=== PATIENT | female | born 1945 | race Caucasian/White ===

== ENCOUNTER 2019-09-24 11:26 | Emergency (ER) | payer MEDICARE, SELFPAY ==
--- NOTE | ~2019-09-24 | XR_ITS ---
XR chest 2V DATE: 09/24/2019 12:13 INDICATION: Cough, sinus congestion TECHNIQUE: PA and lateral views COMPARISON: None FINDINGS: Normal heart size. No hilar or mediastinal enlargement. No pulmonary infiltrate or consolid ation, pleural effusion or pulmonary vascular congestion or pneumothorax. IMPRESSION: No active cardiopulmonary disease Reviewed, dictated and finalized at location B. DENT CARE COORDINATOR
--- NOTE | ~2019-09-24 | XR_ITS ---
XR sinus <3V DATE: 09/24/2019 12:13 INDICATION: Sinus congestion, cough TECHNIQUE: 3 views COMPARISON: None FINDINGS: The paranasal sinuses and mastoid air cells are normally developed and aerated. No radiogra phic evidence of sinusitis is detected. Degenerative changes of the cervical spine. IMPRESSION: Clear paranasal sinuses Reviewed, dictated and finalized at location B. INUOUS MINING MACHINE COAL MINER IMPRESSION: Clear paranasal sinuses
[2019-09-24 11:40] VITALS: BP 149/69; PULSE 65; RESP 20; TEMP 36.6; O2SAT 99
--- NOTE | 2019-09-24 11:48 | ED.URI ---
HPI - URI/Sore Throat General Chief Complaint: Upper Respiratory Infection Stated Complaint: chest hurts/cough Time Seen by Provider: 09/24/19 11:58 Source: patient and RN notes reviewed Mode of arrival: ambulatory Limitations: no limitations History of Present Illness HPI Narrative: A 74 y/o female, who is a smoker and nondrinker, presents to the with a worsening green productive cough for the past 9 days. She reports associated mild sore throat, hoarse voice, wheezes, MARCK rib soreness/ heaviness. She denies any ear aches, calf pain/ edema, fevers, CP, and any other medical complaints. MD elicited complaint: cough (green productive) Onset (ago): day(s) (9) Consistency: progressively worsening Description of mucous: green Associated symptoms: voice changes (hoarse), sore throat (mild) and other (wheezes, MARCK rib sorenss, and chest heaviness) Related Data Home Medications Medication Instructions Recorded Confirmed MT-HR-nmpgip/TQ-toasdw-xadskwb cap PO 09/24/19 [Vicks DayQuil-NyQuil] aspirin [Aspir-81] 81 mg PO DAILY 09/24/19 09/24/19 atorvastatin 10 mg PO DAILY 09/24/19 09/24/19 conjugated estrogens [Premarin] 0.625 mg PO EVERY OTHER DAY 09/24/19 09/24/19 metoprolol succinate 50 mg PO BID 09/24/19 09/24/19 io-tc-KL-vit G-cpmqm-xzo-coQ10 cap PO 09/24/19 [Daily Multivitamin] Allergies Allergy/AdvReac Type Severity Reaction Status Date / Time No Known Allergies Allergy Mild Verified 09/24/19 11:49 Review of Systems Review of Systems: Narrative: General/Constitutional: No weight loss,fever Eyes: N0: Redness,discharge Ears/Nose/Throat: No: Epistaxis,ear discharge, ear ache. Reports a mild sore throat and a hoarse voice. Cardio: Denies any CP or edema. Reports chest heaviness and MARCK rib soreness. Respiratory: Denies: Hemoptysis. Reports a green productive cough and wheezes. Gastrointestinal: No Vomiting, Bleeding-rectal Skin: No Lumps, eruption Neurologic: No Focal Weakness,Sz Hematologic: Denies: Petechiae/Purpura Psychiatric: No: Suicida ideationl All Other Systems: Reviewed and Negative PMFSH Past Medical History Medical History (Updated 09/24/19 @ 12:23 by Avi Goodson MD) Bronchitis Medical history unknown Surgical History Surgical History (Updated 09/24/19 @ 11:49 by Kaveh Hamilton) History of hysterectomy History of tonsillectomy Surgical history unknown Social History Social History (Updated 09/24/19 @ 12:07 by Kaveh Hamilton) Smoking status: Current every day smoker Exam Narrative: Exam Narrative: General Appearance: Well appearing, Well nourished EYE: PERRLA, Conjunctiva clear Ears: Auditory canal normal, TM normal Nose: Rhinorrhea, Mucousal erythema Mouth/Throat: MM moist, Uvula midline, Pharyngeal erythema Neck: Supple, No adenopathy Respiratory: No respiratory distress,sl BS equal, Clear to auscultation with rare wheeze] Cardiovascular: RRR, No JVD Musculoskeletal: Non tender, Normal strength Skin: Warm, Dry Neurological: A&O x3, CN II-XII intact Psychiatric: Normal mood, Normal affect Course Vital Signs Vital signs: Vital Signs Temperature 98 F 09/24/19 11:40 Pulse Rate 65 09/24/19 11:40 Respiratory Rate 20 09/24/19 11:40 Blood Pressure 149/69 H 09/24/19 11:40 Pulse Oximetry 99 09/24/19 11:40 Temperature 98 F 09/24/19 11:40 Pulse Rate 65 09/24/19 11:40 Respiratory Rate 20 09/24/19 11:40 Blood Pressure 149/69 H 09/24/19 11:40 Pulse Oximetry 99 09/24/19 11:40 MDM - URI/Sore Throat Lab Data Labs: Influenza A Screen Negative Reference Range: Negative Influenza B Screen Negative Reference Range: Negative Imaging Data Radiologist's impression: ITS Impressions Chest X-Ray 09/24/19 12:15 IMPRESSION: No active cardiopulmonary disease Sinuses X-Ray 09/24/19 12:16 IMPRESSION: Clear paranasal sinuses Discharge Plan Discharge Cl
== END 2019-09-24 12:25 | disposition home or self-care (01) ==
PROVIDERS: Emergency Provider Emergency Medicine; PCP Internal Medicine
DX: J98.01 Acute bronchospasm (principal); F17.200 Nicotine dependence, unspecified, uncomplicated
CPT/HCPCS: 70210; 71046; 87804; 99203; G0463

== ENCOUNTER 2024-01-26 15:16 | Outpatient (CLI) | payer MEDICARE, SELFPAY ==
--- NOTE | ~2024-01-26 | XR_ITS ---
EXAMINATION: XR foot LT min 3V DATE: 01/26/2024 15:37 INDICATION: Left foot pain TECHNIQUE: Dorsoplantar, oblique and lateral views of the left foot were obtained. COMPARISON: None. FINDINGS: Alignment is normal. No fracture. Mild osteoarthritis at multiple joints in the mid and forefoot. Sma ll Achilles and plantar calcaneal spurs. Soft tissues are unremarkable. IMPRESSION: 1. Mild polyarticular osteoarthritis in the mid and forefoot. Reviewed, dictated and finalized at location A.
[2024-01-26 16:40] LABS: Basophils Absolute Auto 0.1 K/mm3 (0.0-0.1); Basophils Percent Auto 0.7 % (0.2-1.2); Eosinophils Absolute Auto 0.1 K/mm3 (0-0.3); Eosinophils Percent Auto 1.4 % (0-4.4); Hematocrit 42.2 % (37.0-47.0); Hemoglobin 14.1 g/dL (12.0-15.0); Immature Granulocyte Absolute 0.03 K/mm3 (0.00-0.031); Immature Granulocyte Percent A 0.3 % (0-0.5); Lymphocytes Percent Auto 36.4 % (18.3-44.2); Mean Corpuscular HGB Conc 33.4 g/dl (32-36); Mean Corpuscular Hemoglobin 31.1 pg (26-34); Mean Platelet Volume 10.9 fl (7.4-10.4); Monocytes Absolute Auto 0.8 K/mm3 (0.1-0.6); Monocytes Percent Auto 7.8 % (2.6-8.5); Neutrophils Absolute Auto 5.1 K/mm3 (1.3-6.7); Neutrophils Percent Auto 53.4 % (45.5-73.1); Platelet Count Result 313 k/mm3 (150-375); Red Blood Count 4.54 M/mm3 (4.2-5.4); Red Cell Distribution Width 13.3 % (11.5-14.5); White Blood Count 9.6 K/mm3 (4.5-10.0)
[2024-01-26 16:55] LABS: Alanine Aminotransferase 14 U/L (6-35); Albumin Level 4.5 g/dL (3.5-5.1); Alkaline Phosphatase 76 U/L (38-126); Anion Gap 7 mmol/L (4-12); Aspartate Amino Transferase 20 U/L (14-36); Bilirubin,Total 0.7 mg/dL (0.2-1.3); Blood Urea Nitrogen 21 mg/dL (7-17); Calcium 9.3 mg/dL (8.4-10.2); Carbon Dioxide 30 mmol/L (22-30); Chloride 105 mmol/L (98-107); Cholesterol 165 mg/dL (0-200); Estimated Glomerular Filt Rate 48; Glucose 98 mg/dL (65-110); HDL Direct 38 mg/dL; Potassium 4.1 mmol/L (3.4-5.0); Sodium 142 mmol/L (137-145); Triglycerides 335 mg/dL (<150)
[2024-01-26 17:06] LABS: LDL Cholesterol Direct 88 mg/dL
== END 2024-01-26 15:17 | disposition home or self-care (01) ==
PROVIDERS: PCP Internal Medicine; Visit Provider Internal Medicine
DX: M19.072 Primary osteoarthritis, left ankle and foot (principal); I10 Essential (primary) hypertension
CPT/HCPCS: 36415; 73630; 80053; 80061; 85025

== ENCOUNTER 2025-05-29 16:14 | Outpatient (CLI) | payer MEDICARE, SELFPAY ==
--- OUTSIDE RECORDS SUMMARY | 2005-09-15 19:00 | XMS_ITS | Continuity of Care Document ---
Author Organization [facility] Address [address] [place] [address] [place] [address] Phone Care Team Providers Care Information Technology Officer Name Role Phone [facility] [employer] Unavailable Unavail able Sickgeoffrey, Jennifer Unavailable Unavailable Advance Directives Directive Yes / No Effective Date File Name No Information Encounters Encounter Description Practice Location Reason(s) For Visit Diagnoses Date Provider Providers Copied on Encounter [facility], [address], [place], [place], [id number], [place] tel:[phone] [facility] No Information [address] [employer] [address] [facility], [address], [place], [place], [id number] , [place]. tel:[phone] Consulting Provider: Jennifer Gonzalez, [address] [place] [address], [address]. tel:[phone] Family History Family Member Type Diagnosis Age At Onset No Information Payers Payer name Insurance type Covered constitution party ID Authoriza tion(s) No Information Social History Type Description Quantity Date Captured Comments Sex Female Smoking Status No Information Chief Complaint And Reason For Visit No Information Reason For Referral Reason For Referral No Information History Of Present Illness Encounter Date Complaint History Of Prese nt Illness No Information Functional Status Date Functional Assessmen t No Information Instructions Date Instruction Additional Infor mation No Information Assessments Type Assessment Date No Information Patient Care Teams Name Effective Dates (start - stop) Status Members No Information
--- NOTE | ~2025-05-29 | US_ITS ---
EXAMINATION: US renal BI, 05/29/2025 16:40 CDT HISTORY: abnormal kidney function Comparison: None Technique: Iglesias-scale and color Doppler images were obtained. Findings: KIDNEYS: The renal cortices bilaterally are thin and echogenic with multiple nonobstructing tiny punctate calculi, no hydronephrosis. Right Kidney: Right kidney midpole simple cyst 1.9 x 1.8 cm. The right kidney inferior pole simple cyst 1.4 x 1 cm. Left Kidney: Left kidney inferior pole simple cyst 10 x 6 mm. Bladder: The bladder is unremarkable. . Impression: 1. Medical renal disease. Bilateral renal calculi. No hydronephrosis. Simple appearing bilateral renal cysts Reviewed, dictated and finalized at location P. Impression: 1. Medical renal disease. Bilateral renal calculi. No hydronephrosis. Simple ap pearing bilateral renal cysts
--- OUTSIDE RECORDS SUMMARY | 2025-05-29 20:13 | XMS_ITS | Encounter Summary ---
Author Organization [facility] Address [address] [facility] Attn: Epic Prel[place] [address] Care Team Providers Care Landscape And Yardwork Laborer Name Role Phone Shahnaz Miller MD Primary Care Provider [phone] Encounter Details Date Type Department Care Team (Late st Contact Info) Description 01/02/1997 Outpatient Historical Conversion, History Shahnaz Miller MD [facility] [place], [place] [id number] Social History Tobacco Use Types Packs/Day Years Used Date Smoking Tobacco: Never Assessed Comments Unknown Sex and Gender Information Value Date Recorded Sex Assigned at Not on file Legal 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
--- OUTSIDE RECORDS SUMMARY | 2025-05-29 20:13 | XMS_ITS | Encounter Summary ---
Author Organization [employer] Address [address] [place] [address] Care Team Providers Care Cad Detailer Name Role Phone Shahnaz Miller MD Primary Care Provider [phone] Encounter Details Date Type Department Care Team (Late st Contact Info) Description 05/05/2005 Outpatient Historical [facility] Shahnaz Miller MD [address] [place] [phone] Social History Tobacco Use Types Packs/Day Years Used Date Smoking Tobacco: Never Assessed Comments Unknown Sex and Gender Information Value Date Recorded Sex Assigned at Not on file Legal Sex Female 2:48 AM RETREADER Gender Identity Not on file Sexual Orientation Not on file documented as of this encounter Plan of Treatment Not on file documented as of this encounter Visit Diagnoses Not on filedocumented in this encounter Care Teams Cad Detailer Relationship Specialty Start Date End Date Shahnaz Miller MD [address] [place] [phone] PCP - General 03/02/01 documented as of this encounter
--- OUTSIDE RECORDS SUMMARY | 2025-05-29 20:13 | XMS_ITS | Encounter Summary ---
Author Organization [facility] Address [address] [facility] Attn: Epic [place]rel[place] [address] Care Team Providers Care Thiokol Operator Name Role Phone Shahnaz Miller MD Primary Care Provider [phone] Encounter Details Date Type Department Care Team (Late st Contact Info) Description 06/18/1994 Outpatient Historical Shhanaz Miller MD [facility] [place], [place] [phone] Social History Tobacco Use Types Packs/Day Years Used Date Smoking Tobacco: Never Assessed Comments Unknown Sex and Gender Information Value Date Recorded Sex Assigned at Not on file Legal Sex Female 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
--- OUTSIDE RECORDS SUMMARY | 2025-05-29 20:13 | XMS_ITS | Encounter Summary ---
Author Organization [facility] Address 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
--- OUTSIDE RECORDS SUMMARY | 2025-05-29 20:13 | XMS_ITS | Encounter Summary ---
Author Organization [facility] Address [address] [facility] Attn: Epic [place] [address] Care Team Providers Care Support Staff Name Role Phone Shahnaz Miller MD Primary Care Provider Encounter Details Date Type Department Care Team (Late st Contact Info) Description 12/01/1991 Outpatient Historical Shahnaz Miller MD [facility] [place], [place] [phone] Social History Tobacco Use Types Packs/Day Years Used Date Smoking Tobacco: Never Assessed Comments Unknown Sex and Gender Information Value Date Recorded Sex Assigned at Not on file Legal Sex Female 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
--- OUTSIDE RECORDS SUMMARY | 2025-05-29 20:13 | XMS_ITS | Encounter Summary ---
Author Organization [employer] Address [address] [place] [address] Care Team Providers Care Vegetable Scullion Name Role Phone Shahnaz Miller MD Primary Care Provider [phone] Encounter Details Date Type Department Care Team (Late st Contact Info) Description 01/11/2005 Outpatient Historical 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
--- OUTSIDE RECORDS SUMMARY | 2025-05-29 20:13 | XMS_ITS | Encounter Summary ---
Author Organization [employer] Address 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
--- OUTSIDE RECORDS SUMMARY | 2025-05-29 20:13 | XMS_ITS | Encounter Summary ---
Author Organization [facility] Address [address] [facility] Attn: Epic Prel[place] [address] Care Team Providers Care Process Architect Name Role Phone Shahnaz Miller MD Primary Care Provider [phone] Encounter Details Date Type Department Care Team (Late st Contact Info) Description 02/26/1998 Outpatient Historical Conversion, History Shahnaz Miller MD [facility] [place], [place] [phone] Social History Tobacco Use Types Packs/Day Years Used Date Smoking Tobacco: Never Assessed Comments Unknown Sex and Gender Information Value Date Recorded Sex Assigned at Not on file Legal Sex Female 2:48 AM DIRECTOR VISUAL Gender Identity Not on file Sexual Orientation Not on file documented as of this encounter Plan of Treatment Not on file documented as of this encounter Visit Diagnoses Not on filedocumented in this encounter Care Teams Process Architect Relationship Specialty Start Date End Date Shahnaz Miller MD [address] [place] [phone] PCP - General 03/02/01 documented as of this encounter
--- OUTSIDE RECORDS SUMMARY | 2025-05-29 20:13 | XMS_ITS | Encounter Summary ---
Author Organization [facility] Address [address] 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
--- OUTSIDE RECORDS SUMMARY | 2025-05-29 20:13 | XMS_ITS | Encounter Summary ---
Author Organization [facility] Address [address] [facility] Attn: Epic [place] [address] Care Team Providers Care Automotive Parts Counter Associate Name Role Phone Shahnaz Miller MD Primary Care Provider [phone] Encounter Details Date Type Department Care Team (Late st Contact Info) Description 10/28/1993 Outpatient Historical Shahnaz Miller MD [facility] [place], [place] [phone] Social History Tobacco Use Types Packs/Day Years Used Date Smoking Tobacco: Never Assessed Comments Unknown Sex and Gender Information Value Date Recorded Sex Assigned at Not on file Legal Sex Female 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
--- OUTSIDE RECORDS SUMMARY | 2025-05-29 20:13 | XMS_ITS | Encounter Summary ---
Author Organization [employer] Address [address] [place] [address] Care Team Providers Care Boat Painter Name Role Phone Shahnaz Miller MD Primary Care Provider [phone] Encounter Details Date Type Department Care Team (Late st Contact Info) Description 12/20/2002 Outpatient Historical HIS [facility] INTERNISTS Shahnaz Miller MD [address] [place] [phone] Social History Tobacco Use Types Packs/Day Years Used Date Smoking Tobacco: Never Assessed Comments Unknown Sex and Gender Information Value Date Recorded Sex Assigned at Not on file Legal Sex Female 2:48 AM GUIDE Gender Identity Not on file Sexual Orientation Not on file documented as of this encounter Plan of Treatment Not on file documented as of this encounter Visit Diagnoses Not on filedocumented in this encounter Care Teams Boat Painter Relationship Specialty Start Date End Date Shahnaz Miller MD [address] [place] [phone] PCP - General 03/02/01 documented as of this encounter
--- OUTSIDE RECORDS SUMMARY | 2025-05-29 20:13 | XMS_ITS | Encounter Summary ---
Author Organization [employer] Address 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
--- OUTSIDE RECORDS SUMMARY | 2025-05-29 20:13 | XMS_ITS | Encounter Summary ---
Author Organization [employer] Address 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
--- OUTSIDE RECORDS SUMMARY | 2025-05-29 20:13 | XMS_ITS | Encounter Summary ---
Author Organization [facility] Address 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 Gender Identity Not on file Sexual Orientation Not on file documented as of this encounter Plan of Treatment Not on file documented as of this encounter Procedures Procedure Name Priority Date/Time Associated Diagnosis Comments LIPID PANEL Routine 04/26/2005 12:15 PM CDT COMPREHENSIVE METABOLIC PANEL Routine 04/26/2005 12:15 PM CDT documented in this encounter Results * (ABNORMAL) LIPID PANEL (04/26/2005 12:15 PM CDT) CHOLESTEROL 157 100 - 199 mg/dL INTERFACE SYSTEM TRIGLYCERIDE 213(H) 10 - 149 mg/dL INTERFACE SYSTEM HDL 41 40 - 59 mg/dL INTERFACE SYSTEM LDL CALCULATED 73 <=99 mg/dL INTERFACE SYSTEM CHOL/HDL RATIO 3.8 2.0 - 5.0 INTER FACE SYSTEM Comment:See interpretive neha a section for risk classifications. LIPID PANEL COMMENT See below INTERFACE SYSTEM Comment: Adult ATP III Classifications: Cholesterol (mg/dL) Triglyceride (mg/dL) Desirable <200 Normal <150 Borderline 200 - 239 Borderline High 150 - 199 High >=240 High 200 - 499 Very High >=500 HDL Cholesterol (mg/dL) LDL (mg/dL) Low (increased risk) <40 Optimal <100 High (reduced risk) >=60 Near or above optimal 100 - 129 Borderline 130 - 159 High 160 - 189 Very High >=190 LDL calculation is not accurate if Triglycerides are greater than 400 mg /dL Pediatric NCEP Classifications: Cholesterol(<20 years),(mg/dL) Triglyceride Desirable <170 Pediatric classification Borderline 170 - 199 not defined. High >=200 HDL (<5 years) LDL (mg/dL) No Reference Range Established Desirable <110 Borderline 110 - 129 High >=130 04/26/2005 12:1 5 PM CDT us Shahnaz Miller MD CHEMISTRY ORDERABLES Final Resul t INTERFACE SYSTEM Refer to clinic/hospital department * COMPREHENSIVE METABOLIC PANEL (04/26/2005 12:15 PM CDT) GLUCOSE 108 65 - 109 mg/dL INTERFACE SYSTEM CREATININE 0.7 0.4 - 1.2 mg/dL INTERFACE SYSTEM CALCIUM 9.4 8.6 - 10.2 mg/dL INTERFACE SYSTEM AST 17 12 - 32 U/L INTERFACE SYSTEM ALKALINE PHOSPHATASE 73 35 - 104 U/L INTERFACE SYSTEM BUN 12 6 - 20 mg/dL INTERFACE SYSTEM BILIRUBIN TOTAL 0.7 0.2 - 1.0 mg/dL INTERFACE SYSTEM ALBUMIN 4.6 3.4 - 4.8 g/dL INTERFACE SYSTEM TOTAL PROTEIN 7.5 6.3 - 8.6 g/dL INTERFACE SYSTEM ALT 14 0 - 31 U/L INTERFACE SYSTEM SODIUM 141 135 - 145 mmol/L INTERFACE SYSTEM POTASSIUM 4.0 3.5 - 4.9 mmol/L INTERFACE SYSTEM CHLORIDE 105 96 - 108 mmol/L INTERFACE SYSTEM CO2 29 22 - 30 mmol/L INTERFACE SYSTEM 04/26/2005 12:1 5 PM CDT us Shahnaz Miller MD CHEMISTRY ORDERABLES Final Resul t INTERFACE SYSTEM Refer to clinic/hospital department documented in this encounter Visit Diagnoses Diagnosis Acute bronchitis- Primary documented in this encounter Care Teams Director Of [facility] Relationship Specialty Start Date End Date Shahnaz Miller MD [address] [place] [address] PCP - General 03/02/01 documented as of this encounter
--- OUTSIDE RECORDS SUMMARY | 2025-05-29 20:13 | XMS_ITS | Encounter Summary ---
Author Organization [facility] Address 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 Gender Identity Not on file Sexual Orientation Not on file documented as of this encounter Plan of Treatment Not on file documented as of this encounter Procedures Procedure Name Priority Date/Time Associated Diagnosis Comments CBC WITH DIFFERENTIAL Routine 01/11/2005 3:08 PM CDT CBC WITH DIFFERENTIAL Routine 01/11/2005 3:08 PM CDT TSH Routine 01/11/2005 3:08 PM CDT LIPID PANEL Routine 01/11/2005 3:08 PM CDT COMPREHENSIVE METABOLIC PANEL Routine 01/11/2005 3:08 PM CDT URINALYSIS W/REFLEX MICROSCOPIC Routine 01/11/2005 3:02 PM CDT documented in this encounter Results * CBC WITH DIFFERENTIAL (01/11/2005 3:08 PM CDT) NEUTROPHILS 51 45 - 70 % INTERFAC E SYSTEM LYMPHOCYTES 42 16 - 45 % INTERFAC E SYSTEM MONOCYTES 5 3 - 13 % INTERFACE SYSTEM EOSINOPHILS 2 0 - 7 % INTERFAC E SYSTEM BASOPHILS 1 0 - 2 % INTERFACE SYSTEM NEUTROPHIL ABSOLUTE 4.50 1.90 - 7.00 K/uL INTERFACE SYSTEM LYMPHOCYTE ABSOLUTE 3.64 0.70 - 4.50 K/uL INTERFACE SYSTEM MONOCYTE ABSOLUTE 0.41 0.10 - 1.30 K/uL INTERFACE SYSTEM EOSINOPHIL ABSOLUTE 0.15 0.00 - 0.70 K/uL INTERFACE SYSTEM BASOPHILS ABSOLUTE 0.05 0.00 - 0.20 K/uL INTERFACE SYSTEM 01/11/2005 3:08 PM CDT Shahnaz Miller MD HEMATOLOGY ORDERABLES Final Resu lt Performing Organization Address City/[facility] de Phone Number INTERFACE SYSTEM Refer to clinic/hospital department * CBC WITH DIFFERENTIAL (01/11/2005 3:08 PM CDT) WBC 8.8 4.0 - 9.8 K/uL INTERFACE SYSTEM RBC 4.48 3.90 - 4.90 M/uL INTERFACE SYSTEM HEMOGLOBIN 14.0 11.8 - 14.8 g/dL INTERFACE SYSTEM HEMATOCRIT 41.5 35.5 - 44.0 % INTERFACE SYSTEM MCV 92.6 82.0 - 99.0 fL INTERFACE SYSTEM MCH 31.3 27.2 - 32.6 pg INTERFACE SYSTEM MCHC 33.7 31.5 - 35.5 % INTERFACE SYSTEM RDW 13.2 11.5 - 14.5 % INTERFACE SYSTEM RDW-STDEV 44.8 37.1 - 48.7 fL INTERFACE SYSTEM PLATELETS 296 140 - 350 K/uL INTERFACE SYSTEM MPV 11.5 9.3 - 12.4 fL INTERFACE SYSTEM 01/11/2005 3:08 PM CDT Shahnaz Miller MD HEMATOLOGY ORDERABLES Final Resu lt Performing Organization Address City/[facility] Co de Phone Number INTERFACE SYSTEM Refer to clinic/hospital department * TSH (01/11/2005 3:08 PM CDT) TSH 0.98 0.27 - 4.20 uU/mL INTERFACE SYSTEM 01/11/2005 3:08 PM CDT us Shahnaz Miller MD CHEMISTRY ORDERABLES Final Resul t Performing Organization Address City/[facility] Co de Phone Number INTERFACE SYSTEM Refer to clinic/hospital department * (ABNORMAL) LIPID PANEL (01/11/2005 3:08 PM CDT) CHOLESTEROL 198 100 - 199 mg/dL INTERFACE SYSTEM TRIGLYCERIDE 289(H) 10 - 149 mg/dL INTERFACE SYSTEM HDL 46 40 - 59 mg/dL INTERFACE SYSTEM LDL CALCULATED 94 <=99 mg/dL INTERFACE SYSTEM CHOL/HDL RATIO 4.3 2.0 - 5.0 INTER FACE SYSTEM Comment:See [...] <110 Borderline 110 - 129 High >=130 01/11/2005 3:08 PM CDT us Shahnaz Miller MD CHEMISTRY ORDERABLES Final Resul t Performing Organization Address [facility] Co de Phone Number INTERFACE SYSTEM Refer to clinic/hospital department * COMPREHENSIVE METABOLIC PANEL (01/11/2005 3:08 PM CDT) GLUCOSE 78 65 - 109 mg/dL INTERFACE SYSTEM CREATININE 0.7 0.4 - 1.2 mg/dL INTERFACE SYSTEM CALCIUM 9.3 8.6 - 10.2 mg/dL INTERFACE SYSTEM AST 14 12 - 32 U/L INTERFACE SYSTEM ALKALINE PHOSPHATASE 64 35 - 104 U/L INTERFACE SYSTEM BUN 12 6 - 20 mg/dL INTERFACE SYSTEM BILIRUBIN TOTAL 0.6 0.2 - 1.0 mg/dL INTERFACE SYSTEM ALBUMIN 4.6 3.4 - 4.8 g/dL INTERFACE SYSTEM TOTAL PROTEIN 7.6 6.3 - 8.6 g/dL INTERFACE SYSTEM ALT 17 0 - 31 U/L INTERFACE SYSTEM SODIUM 144 135 - 145 mmol/L INTERFACE SYSTEM POTASSIUM 3.6 3.5 - 4.9 mmol/L INTERFACE SYSTEM CHLORIDE 105 96 - 108 mmol/L INTERFACE SYSTEM CO2 27 22 - 30 mmol/L INTERFACE SYSTEM 01/11/2005 3:08 PM CDT us Shahnaz Miller MD CHEMISTRY ORDERABLES Final Resul t Performing Organization Address [facility] Phone Number INTERFACE SYSTEM Refer to clinic/hospital department * (ABNORMAL) URINALYSIS (01/11/2005 3:02 PM CDT) COLOR UA Yellow INTERFACE SYSTEM CLARITY UA Cloudy(A) Clear INTERFACE SYSTEM SPECIFIC GRAVITY UA 1.020 1.001 - 1.035 INTERFACE SYSTEM PH UA 5.0 5.0 - 8.0 INTERFACE SYSTEM LEUKOCYTE ESTERASE UA Trace(A) Negative INTERFACE SYSTEM NITRITE UA Negative Negative INTERFACE SYSTEM PROTEIN UA Negative Negative INTERFACE SYSTEM GLUCOSE UA Negative Negative INTERFACE SYSTEM KETONES UA Negative Negative INTERFACE SYSTEM UROBILINOGEN UA <1 <1 EU INTE RFACE SYSTEM BILIRUBIN UA Negative Negative INTERFA CE SYSTEM BLOOD UA Trace(A) Negative INTERFACE SYSTEM WBC UA 4 0 - 5 /HPF INTERFACE SYSTEM RBC UA 5(H) 0 - 4 /HPF INTERFACE SYSTEM BACTERIA UA 1+(A) None Seen /HPF INTERFACE SYSTEM EPITHELIAL CELLS, URINE 2-5 /HPF INTERFACE SYSTEM 01/11/2005 3:02 PM CDT us Shahnaz Miller MD URINE ORDERABLES Final Result Performing Organization Address [facility] Phone Number INTERFACE SYSTEM Refer to clinic/hospital department documented in this encounter Visit Diagnoses Diagnosis Major depressive disorder, single episode, unspecified- Primary documented in this encounter Care Teams Wool Hat Sanding Machine Operator Relationship Specialty Start Date End Date Shahnaz Miller MD [facility] [place] [address] PCP - General 03/02/01 documented as of this encounter
--- OUTSIDE RECORDS SUMMARY | 2025-05-29 20:13 | XMS_ITS | Encounter Summary ---
Author Organization [facility] Address 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
--- OUTSIDE RECORDS SUMMARY | 2025-05-29 20:13 | XMS_ITS | Data Portability ---
Author Organization [facility] [place], Main Office Address [address] [place] [address] Assessment Encounter Date Assessment Date Assessment LastModified by Organization Details LastModified Time 03/30/2023 03/30/2023 Blood work Continue current therapy Pain recurs call Back for re-evaluation Diagnosis in assessment and plan discussed [email or web address] Not available 03/30/2023 22:21:56 08/15/2023 08/15/2023 Continue current therapy doing well follow-up in about 6 months Not available 08/15/2023 22:47:05 Plan of Treatment Reminders Order Date Submit Date Provider Last Modified By Organization Details Last Modified Time Details Appointments None recorded. Lab lipid panel, serum 2023 024 [facility] (Lab), [address] [place], [address], 4 19:15:43 CBC w/ auto diff 2023 024 [facility] (Lab), [address] [place], [address], 4 18:14:49 CMP, serum or plasma 2023 024 [facility] (Lab), [address] [place], [address], 4 19:15:48 lipase, serum or plasma 2022 023 [email or web address] [facility] (Lab), [address] [place], [address], 3 15:11:08 urinalysis, microscopic 2022 023 [email or web address] [facility] (Lab), [address] [place] [address], [address], 4 15:36:59 CMP, serum or plasma [address] (Lab), [address] [place], [address], 3 15:11:08 lipid panel, serum [address] (Lab), [address] [place], [address], 3 15:11:08 CBC w/ auto diff [address] (Lab), [address] [place], [address], 3 15:11:08 Referral None recorded. Procedures None recorded. Surgeries None recorded. Imaging None recorded. Medication Orders lisinopril 10 mg tablet 2023 024 [email or web address] [facility], [address] [place] [address], [facility] [address], [place], [place], [id number], 4 17:00:45 atorvastati n 10 mg tablet 2023 024 [facility], [address] [facility] [address], [place], [place], [id number], 4 17:00:45 metoprolol succinate ER 50 mg tablet,exte nded release 24 hr 2023 024 [facility], [address], [address], [place], [place], [id number], 17:00:45 Patient TargetsNo targets recorded. Patient InstructionsNo instructions recorded. Reason for Referral None Reported. Results Created Date Observation Date Name Description Value Unit Range Abnormal Flag Note LastModifiedBy Organization Detail LastModifiedTime 09/02/19 22 09/02/2021 VITAM IN D 25-HY DROXY vd25oh 15.2 NG/mL 30-100 low Vitam in D Statu s: Defic ient: <20 ng/mL Insuf ficie nt: 20-29 ng/mL Suffi cient : 30-10 0 ng/mL Not Available [facility] (Lab) [address] [place], [address], 09/02/2021 17:58:16 09/02/19 22 09/02/2021 LIPID PANEL LDL cholesterol, calculated 81 mg/dL 0-130 NIH SOMEL NSUS REPOR T RECOM MENDA TIONS FOR LDL: ADULT CHILD LOW RISK <130 <110 (OPTI MAL LDL) <100 ----- BORDE RLINE : 130-1 59 ----- HIGH RISK: >160 >130 A TRIGL YCERI DE RESUL T >400 INVAL IDATE S THE CALCU LATIO N FOR LDL FRACT IONAT ION - THE LDL RESUL T WILL NOT BE REPOR JOE. Not Available [facility] (Lab) [address] [place], [address], 09/02/2021 17:32:09 09/02/19 22 09/02/2021 LIPID PANEL cholesterol 198 mg/dL 140-19 9 NIH OSMEL NSUS RECOM MENDA TION FOR JERAMY STERO L: ADULT CHILD LOW RISK: <200 <170 BORDE RLINE : <200- 239 ----- HIGH RISK: >240 >200 Not Available [facility] (Lab) [address] [place], [address], 09/02/2021 17:32:09 09/02/19 22 09/02/2021 LIPID PANEL triglyceride s 386 mg/dL 0-150 high NIH OSMEL NSUS REPOR T RECOM MENDA TION FOR TRIGL YCERI GEORGE: ADULT CHILD LOW RISK: <150 ----- BODER LINE: 150-1 99 ----- HIGH RISK: >200 ----- Not Available [facility] (Lab) [address] [place], [address], 09/02/2021 17:32:09 09/02/19 22 09/02/2021 LIPID PANEL HDL cholesterol 40 mg/dL 40- Not Available [facility] (Lab) [address] [place], [address], 09/02/2021 17:32:09 09/02/19 22 09/02/2021 COMPR EHENS BRODY METAB OLIC PANEL alkaline phosphatase 73 U/L 38-126 Not Available [facility] (Lab) [address] [place], [address], 09/02/2021 17:32:00 09/02/19 22 09/02/2021 COMPR EHENS BRODY METAB OLIC PANEL sodium 141 mmol/ L 137-14 5 Not Available [facility] (Lab) [address] [place], [address], 09/02/2021 17:32:00 09/02/19 22 09/02/2021 COMPR EHENS BRODY METAB OLIC PANEL potassium 4.8 mmol/ L 3.5-5. 1 Not Available [facility] (Lab) [address] [place], [address], 09/02/2021 17:32:00 09/02/19 22 09/02/2021 COMPR EHENS BRODY METAB OLIC PANEL chloride 104 mmol/ L 98-107 Not Available [facility] (Lab) [address] [place], [address], 09/02/2021 17:32:00 09/02/19 22 09/02/2021 COMPR EHENS BRODY METAB OLIC PANEL carbon dioxide 28 mmol/ L 22-30 Not Available [facility] (Lab) [address] [place], [address], 09/02/2021 17:32:00 09/02/19 22 09/02/2021 COMPR EHENS BRODY METAB OLIC PANEL agap 13.8 mmol/ L 14-22 low Not Available [facility] (Lab) [address] [place], [address], 09/02/2021 17:32:00 09/02/19 22 09/02/2021 COMPR EHENS BRODY METAB OLIC PANEL glucose 107 mg/dL 70-99 high Not Available [facility] (Lab) [address] [place], [address], 09/02/2021 17:32:00 09/02/19 22 09/02/2021 COMPR EHENS BRODY METAB OLIC PANEL BUN 24 mg/dL 8-19 high Not Available [facility] (Lab) [address] [place], [address], 09/02/2021 17:32:00 09/02/19 22 09/02/2021 COMPR EHENS BRODY METAB OLIC PANEL creatinine 0.86 mg/dL 0.66-1 .25 Not Available [facility] (Lab) [address] [place], [address], 09/02/2021 17:32:00 09/02/19 22 09/02/2021 COMPR EHENS BRODY METAB OLIC PANEL GFR >60 Refer ence Range : [place] ge GFR Healt hy Adult : >60 mL/mi n/1.7 3 m2 Chron ic Kidne y Disea se: 15-60 mL/mi n/1.7 3 m2 Kidne y Failu re: <15/m L/min /1.73 m2 www.n iddk. nih.g ov The MDRD study equat ion has not been valid ated in child adrian <18 years of age; pregn ant women ; the elder ly >85 years of age; or in some racia l or ethni c subgr oups, such as Hispa nics. Outsi de the valid ated marleny eters , estim ated GFR is less accur ate, requi ring clini nicci judgm ent on a case- by-ca se basis . Clini nicci inter preta tion for other races and ages must be made by the clini jose. The MDRD study equat ion has not been valid ated for the evalu ation of serum creat inine relat ed to nutri robbin l statu s or medic ation usage . For perso ns <18 years of age, a pedia tric GFR calcu lator is avail able on the [facility] websi te: https ://ww w.kid cassy.o rg/pr ofess ional s/kdo qi/gf r_cal culat or Not Available [facility] (Lab) [address] [place], [address], 09/02/2021 17:32:00 09/02/19 22 09/02/2021 COMPR EHENS BRODY METAB OLIC PANEL alanine aminotransfe rase 19 U/L 0-35 Not Available [facility] (Lab) [address] [place], [address], 09/02/2021 17:32:00 09/02/19 22 09/02/2021 COMPR EHENS BRODY METAB OLIC PANEL aspartate aminotransfe rase 25 U/L 15-37 Not Available [facility] (Lab) [address] [place], [address], 09/02/2021 17:32:00 09/02/19 22 09/02/2021 COMPR EHENS BRODY METAB OLIC PANEL bilirubin, total 0.80 mg/dL 0.20-1 .30 Not Available [facility] (Lab) [address] [place], [address], 09/02/2021 17:32:00 09/02/19 22 09/02/2021 COMPR EHENS BRODY METAB OLIC PANEL calcium 9.7 mg/dL 8.4-10 .2 Not Available [facility] (Lab) [address] [place], [address], 09/02/2021 17:32:00 09/02/19 22 09/02/2021 COMPR EHENS BRODY METAB OLIC PANEL total protein 7.1 g/dL 6.3-8. 2 Not Available [facility] (Lab) [address] [place], [address], 09/02/2021 17:32:00 09/02/19 22 09/02/2021 COMPR EHENS BRODY METAB OLIC PANEL albumin 4.8 g/dL 3.0-4. 4 high Not Available [facility] (Lab) [address] [place], [address], 09/02/2021 17:32:00 09/02/19 22 09/02/2021 COMPR EHENS BRODY METAB OLIC PANEL globulin 2.3 g/dL 2.6-4. 2 low Not Available [facility] (Lab) [address] [place], [address], 09/02/2021 17:32:00 09/02/19 22 09/02/2021 COMPR EHENS BRODY METAB OLIC PANEL A/G ratio 2.1 ratio 1.0-2. 0 high Not Available [facility] (Lab) [address] [place], [address], 09/02/2021 17:32:00 11/25/19 22 11/24/2021 VITAM IN D 25-HY DROXY vd25oh 38.0 NG/mL 30-100 Vitam in D Statu s: Defic ient: <20 ng/mL Insuf ficie nt: 20-29 ng/mL Suffi cient : 30-10 0 ng/mL Not Available [facility] (Lab) [address] [place], [address], 11/24/2021 13:02:49 04/05/20 22 04/05/2022 VITAM IN D 25-HY DROXY vd25oh 33.5 NG/mL 30-100 Vitam in D Statu s: Defic ient: <20 ng/mL Insuf ficie nt: 20-29 ng/mL Suffi cient : 30-10 0 ng/mL Not Available [facility] (Lab) [address] [place], [address], 04/05/2022 15:00:50 04/05/20 22 04/05/2022 MAGNE SIUM magnesium 2.0 mg/dL 1.6-2. 3 Not Available [facility] (Lab) [address] [place], [address], 04/05/2022 14:52:01 04/05/20 22 04/05/2022 LIPID PANEL cholesterol 177 mg/dL 140-19 9 NIH OSMEL NSUS RECOM MENDA TION FOR JERAMY STERO L: ADULT CHILD LOW RISK: <200 <170 BORDE RLINE : <200- 239 ----- HIGH RISK: >240 >200 Not Available [facility] (Lab) [address] [place], [address], 04/05/2022 14:51:59 04/05/20 22 04/05/2022 LIPID PANEL triglyceride s 405 mg/dL 0-150 high NIH OSMEL NSUS REPOR T RECOM MENDA TION FOR TRIGL YCERI GEORGE: ADULT CHILD LOW RISK: <150 ----- BODER LINE: 150-1 99 ----- HIGH RISK: >200 ----- Not Available [facility] (Lab) [address] [place], [address], 04/05/2022 14:51:59 04/05/20 22 04/05/2022 LIPID PANEL HDL cholesterol 33 mg/dL 40- low Not Available [facility] (Lab) [address] [place], [address], 04/05/2022 14:51:59 04/05/20 22 04/05/2022 COMPR EHENS BRODY METAB OLIC PANEL creatinine 0.99 mg/dL 0.66-1 .25 Not Available [facility] (Lab) [address] [place], [address], 04/05/2022 14:51:24 04/05/20 22 04/05/2022 COMPR EHENS BRODY METAB OLIC PANEL anion gap 13.7 mmol/ L 14-22 low Not Available [facility] (Lab) [address] [place], [address], 04/05/2022 14:51:24 04/05/20 22 04/05/2022 COMPR EHENS BRODY METAB OLIC PANEL glucose 93 mg/dL 70-99 Not Available [facility] (Lab) [address] [place], [address], 04/05/2022 14:51:24 04/05/20 22 04/05/2022 COMPR EHENS BRODY METAB OLIC PANEL BUN 21 mg/dL 8-19 high Not Available [facility] (Lab) [address] [place], [address], 04/05/2022 14:51:24 04/05/20 22 04/05/2022 COMPR EHENS BRODY METAB OLIC PANEL GFR 55 Refer ence Range : [place] ge GFR Healt hy Adult : >60 mL/mi n/1.7 3 m2 Chron ic Kidne y Disea se: 15-60 mL/mi n/1.7 3 m2 Kidne y Failu re: <15/m L/min /1.73 m2 www.n iddk. nih.g ov The MDRD study equat ion has not been valid ated in child adrian <18 years of age; pregn ant women ; the elder ly >85 years of age; or in some racia l or ethni c subgr oups, such as Hispa nics. Outsi de the valid ated marleny eters , estim ated GFR is less accur ate, requi ring clini nicci judgm ent on a case- by-ca se basis . Clini nicci inter preta tion for other races and ages must be made by the clini jose. The MDRD study equat ion has not been valid ated for the evalu ation of serum creat inine relat ed to nutri robbin l statu s or medic ation usage . For perso ns <18 years of age, a pedia tric GFR calcu lator is avail able on the [facility] websi te: https ://bradley madera.o rg/pr ofess ional s/kdo qi/gf r_cal culat or Not Available [facility] (Lab) [address] [place], [address], 04/05/2022 14:51:24 04/05/20 22 04/05/2022 COMPR EHENS BRODY METAB OLIC PANEL alkaline phosphatase 75 U/L 38-126 Not Available [facility] (Lab) [address] [place], [address], 04/05/2022 14:51:24 04/05/20 22 04/05/2022 COMPR EHENS BRODY METAB OLIC PANEL alanine aminotransfe rase 16 U/L 0-35 Not Available [facility] (Lab) [address] [place], [address], 04/05/2022 14:51:24 04/05/20 22 04/05/2022 COMPR EHENS BRODY METAB OLIC PANEL aspartate aminotransfe rase 23 U/L 15-37 Not Available [facility] (Lab) [address] [place], [address], 04/05/2022 14:51:24 04/05/20 22 04/05/2022 COMPR EHENS BRODY METAB OLIC PANEL bilirubin, total 0.80 mg/dL 0.20-1 .30 Not Available [facility] (Lab) [address] [place], [address], 04/05/2022 14:51:24 04/05/20 22 04/05/2022 COMPR EHENS BRODY METAB OLIC PANEL calcium 9.6 mg/dL 8.4-10 .2 Not Available [facility] (Lab) [address] [place], [address], 04/05/2022 14:51:24 04/05/20 22 04/05/2022 COMPR EHENS BRODY METAB OLIC PANEL total protein 7.0 g/dL 6.3-8. 2 Not Available [facility] (Lab) [address] [place], [address], 04/05/2022 14:51:24 04/05/20 22 04/05/2022 COMPR EHENS BRODY METAB OLIC PANEL albumin 4.6 g/dL 3.0-4. 4 high Not Available [facility] (Lab) [address] [place], [address], 04/05/2022 14:51:24 04/05/20 22 04/05/2022 COMPR EHENS BRODY METAB OLIC PANEL globulin 2.4 g/dL 2.6-4. 2 low Not Available [facility] (Lab) [address] [place], [address], 04/05/2022 14:51:24 04/05/20 22 04/05/2022 COMPR EHENS BRODY METAB OLIC PANEL A/G ratio 1.9 ratio 1.0-2. 0 Not Available [facility] (Lab) [address] [place], [address], 04/05/2022 14:51:24 04/05/20 22 04/05/2022 COMPR EHENS BRODY METAB OLIC PANEL sodium 140 mmol/ L 137-14 5 Not Available [facility] (Lab) [address] [place], [address], 04/05/2022 14:51:24 04/05/20 22 04/05/2022 COMPR EHENS BRODY METAB OLIC PANEL potassium 4.7 mmol/ L 3.5-5. 1 Not Available [facility] (Lab) [address] [place], [address], 04/05/2022 14:51:24 04/05/20 22 04/05/2022 COMPR EHENS BRODY METAB OLIC PANEL chloride 103 mmol/ L 98-107 Not Available [facility] (Lab) [address] [facility] [place], [address], 04/05/2022 14:51:24 04/05/20 22 04/05/2022 COMPR EHENS BRODY METAB OLIC PANEL carbon dioxide 28 mmol/ L 22-30 Not Available [facility] (Lab) [address] [place], [address], 04/05/2022 14:51:24 04/05/20 22 04/05/2022 CBC/C OMPLE TE BLD COUNT W/DIF F hematocrit 45.9 % 35.7-4 5.7 high Not Available [facility] (Lab) [address] [place], [address], 04/05/2022 14:29:24 04/05/20 22 04/05/2022 CBC/C OMPLE TE BLD COUNT W/DIF F white blood cells 9.1 x10'3 /uL 4.2-10 .8 Not Available [facility] (Lab) [address] [place], [address], 04/05/2022 14:29:24 04/05/20 22 04/05/2022 CBC/C OMPLE TE BLD COUNT W/DIF F red blood cells 4.82 x10'6 /uL 3.80-5 .20 Not Available [facility] (Lab) [address] [place], [address], 04/05/2022 14:29:24 04/05/20 22 04/05/2022 CBC/C OMPLE TE BLD COUNT W/DIF F hemoglobin 14.4 g/dL 12.0-1 5.6 Not Available [facility] (Lab) [address] [place], [address], 04/05/2022 14:29:24 04/05/20 22 04/05/2022 CBC/C OMPLE TE BLD COUNT W/DIF F mean red cell volume 95.2 fL 82.0-9 9.0 Not Available [facility] (Lab) [address] [place], [address], 04/05/2022 14:29:24 04/05/20 22 04/05/2022 CBC/C OMPLE TE BLD COUNT W/DIF F mean red cell hemoglobin 29.9 pg 27.0-3 3.0 Not Available [facility] (Lab) [address] [place], [address], 04/05/2022 14:29:24 04/05/20 22 04/05/2022 CBC/C OMPLE TE BLD COUNT W/DIF F mean RBC HGB concentratio n 31.4 g/dL 31.0-3 6.0 Not Available [facility] (Lab) [address] [place], [address], 04/05/2022 14:29:24 04/05/20 22 04/05/2022 CBC/C OMPLE TE BLD COUNT W/DIF F red cell distribution width 13.3 % 11.8-1 5.5 Not Available [facility] (Lab) [address] [place], [address], 04/05/2022 14:29:24 04/05/20 22 04/05/2022 CBC/C OMPLE TE BLD COUNT W/DIF F platelets 322 x10'3 /uL 150-40 0 Not Available [facility] (Lab) [address] [place], [address], 04/05/2022 14:29:24 04/05/20 22 04/05/2022 CBC/C OMPLE TE BLD COUNT W/DIF F mean platelet volume 11.5 fL 9.0-12 .4 Not Available [facility] (Lab) [address] [place], [address], 04/05/2022 14:29:24 04/05/20 22 04/05/2022 CBC/C OMPLE TE BLD COUNT W/DIF F neutrophils 46.7 % 39.0-7 2.0 Not Available [facility] (Lab) [address] [place], [address], 04/05/2022 14:29:24 04/05/20 22 04/05/2022 CBC/C OMPLE TE BLD COUNT W/DIF F lymphocytes 42.0 % 16.0-4 7.0 Not Available [facility] (Lab) [address] [place], [address], 04/05/2022 14:29:24 04/05/20 22 04/05/2022 CBC/C OMPLE TE BLD COUNT W/DIF F monocytes 8.1 % 5.0-12 .0 Not Available [facility] (Lab) [address] [place], [address], 04/05/2022 14:29:24 04/05/20 22 04/05/2022 CBC/C OMPLE TE BLD COUNT W/DIF F eosinophils 2.1 % 1.0-7. 0 Not Available [facility] (Lab) [address] [place], [address], 04/05/2022 14:29:24 04/05/20 22 04/05/2022 CBC/C OMPLE TE BLD COUNT W/DIF F basophils 0.8 % 0.0-2. 0 Not Available [facility] (Lab) [address] [place], [address], 04/05/2022 14:29:24 04/05/20 22 04/05/2022 CBC/C OMPLE TE BLD COUNT W/DIF F immature granulocytes 0.3 % 0.00-0 .50 Not Available [facility] (Lab) [address] [place], [address], 04/05/2022 14:29:24 04/05/20 22 04/05/2022 CBC/C OMPLE TE BLD COUNT W/DIF F neutrophils, absolute count 4.25 x10'3 /uL 1.5-8. 0 Not Available [facility] (Lab) [address] [facility] [place], [address], 04/05/2022 14:29:24 04/05/20 22 04/05/2022 CBC/C OMPLE TE BLD COUNT W/DIF F lymphocytes, absolute count 3.83 x10'3 /uL 1.07-3 .43 high Not Available [facility] (Lab) [address] [place], [address], 04/05/2022 14:29:24 04/05/20 22 04/05/2022 CBC/C OMPLE TE BLD COUNT W/DIF F monocytes, absolute count 0.74 x10'3 /uL 0.29-0 .99 Not Available [facility] (Lab) [address] [place], [address], 04/05/2022 14:29:24 04/05/20 22 04/05/2022 CBC/C OMPLE TE BLD COUNT W/DIF F eosinophils, absolute count 0.19 x10'3 /uL 0.02-0 .53 Not Available [facility] (Lab) [address] [place], [address], 04/05/2022 14:29:24 04/05/20 22 04/05/2022 CBC/C OMPLE TE BLD COUNT W/DIF F basophils, absolute count 0.07 x10'3 /uL 0.01-0 .08 Not Available [facility] (Lab) [address] [place], [address], 04/05/2022 14:29:24 04/05/20 22 04/05/2022 CBC/C OMPLE TE BLD COUNT W/DIF F immature granulocytes ,absolute 0.03 x10'3 /uL 0.00-0 .05 Not Available [facility] (Lab) [address] [facility] [place], [address], 04/05/2022 14:29:24 04/05/20 22 04/05/2022 CBC/C OMPLE TE BLD COUNT W/DIF F nucleated red blood cells 0.0 % -0 Not Available [facility] (Lab) [address] [place], [address], 04/05/2022 14:29:24 04/05/20 22 04/05/2022 CBC/C OMPLE TE BLD COUNT W/DIF F NRBC# 0.00 x10'3 /uL Not Available [facility] (Lab) [address] [place], [address], 04/05/2022 14:29:24 03/30/20 23 03/30/2023 COMPR EHENS BRODY METAB OLIC PANEL sodium 139 mmol/ L 137-14 5 Not Available [facility] (Lab) [address] [place], [address], 03/30/2023 13:51:04 03/30/20 23 03/30/2023 COMPR EHENS BRODY METAB OLIC PANEL potassium 4.5 mmol/ L 3.5-5. 1 Not Available [facility] (Lab) [address] [place], [address], 03/30/2023 13:51:04 03/30/20 23 03/30/2023 COMPR EHENS BRODY METAB OLIC PANEL chloride 105 mmol/ L 98-107 Not Available [facility] (Lab) [address] [place], [address], 03/30/2023 13:51:04 03/30/20 23 03/30/2023 COMPR EHENS BRODY METAB OLIC PANEL carbon dioxide 25 mmol/ L 22-30 Not Available [facility] (Lab) [address] [place], [address], 03/30/2023 13:51:04 03/30/2003/30/2023 COMPR EHENS BRODY METAB OLIC PANEL anion gap 13.5 mmol/ L 14-22 low Not Available [facility] (Lab) [address] [place], [address], 03/30/2023 13:51:04 03/30/2003/30/2023 COMPR EHENS BRODY METAB OLIC PANEL glucose 91 mg/dL 70-99 Not Available [facility] (Lab) [address] [place], [address], 03/30/2023 13:51:04 03/30/2003/30/2023 COMPR EHENS BRODY METAB OLIC PANEL BUN 14 mg/dL 8-19 Not Available [facility] (Lab) [address] [place], [address], 03/30/2023 13:51:04 03/30/2003/30/2023 COMPR EHENS BRODY METAB OLIC PANEL creatinine 0.89 mg/dL 0.66-1 .25 Not Available [facility] (Lab) [address] [place], [address], 03/30/2023 13:51:04 03/30/2003/30/2023 COMPR EHENS BRODY METAB OLIC PANEL GFR >60 Refer ence Range : [place] ge GFR Healt hy Adult : >60 mL/mi n/1.7 3 m2 Chron ic Kidne y Disea se: 15-60 mL/mi n/1.7 3 m2 Kidne y Failu re: <15/m L/min /1.73 m2 www.n iddk. nih.g ov The MDRD study equat ion has not been valid ated in child adrian <18 years of age; pregn ant women ; the elder ly >85 years of age; or in some racia l or ethni c subgr oups, such as Hispa nics. Outsi de the valid ated marleny eters , estim ated GFR is less accur ate, requi ring clini nicci judgm ent on a case- by-ca se basis . Clini nicci inter preta tion for other races and ages must be made by the clini jose. The MDRD study equat ion has not been valid ated for the evalu ation of serum creat inine relat ed to nutri robbin l statu s or medic ation usage . For perso ns <18 years of age, a pedia tric GFR calcu lator is avail able on the F websi te: https ://ww w.kid cassy.o rg/pr ofess ional s/kdo qi/gf r_cal culat or Not Available [facility] (Lab) [address] [place], [address], 03/30/2023 13:51:04 03/30/2003/30/2023 COMPR EHENS BRODY METAB OLIC PANEL alkaline phosphatase 82 U/L 38-126 Not Available [facility] (Lab) [address] [place], [address], 03/30/2023 13:51:04 03/30/2003/30/2023 COMPR EHENS BRODY METAB OLIC PANEL alanine aminotransfe rase 15 U/L 0-35 Not Available [facility] (Lab) [address] [place], [address], 03/30/2023 13:51:04 03/30/2003/30/2023 COMPR EHENS BRODY METAB OLIC PANEL aspartate aminotransfe rase 18 U/L 15-37 Not Available [facility] (Lab) [address] [place], [address], 03/30/2023 13:51:04 03/30/2003/30/2023 COMPR EHENS BRODY METAB OLIC PANEL bilirubin, total 0.60 mg/dL 0.20-1 .30 Not Available [facility] (Lab) [address] [place], [address], 03/30/2023 13:51:04 03/30/20 23 03/30/2023 COMPR EHENS BRODY METAB OLIC PANEL calcium 9.5 mg/dL 8.4-10 .2 Not Available [facility] (Lab) [address] [place], [address], 03/30/2023 13:51:04 03/30/2003/30/2023 COMPR EHENS BRODY METAB OLIC PANEL total protein 6.5 g/dL 6.3-8. 2 Not Available [facility] (Lab) [address] [place], [address], 03/30/2023 13:51:04 03/30/20 23 03/30/2023 COMPR EHENS BRODY METAB OLIC PANEL albumin 4.1 g/dL 3.0-4. 4 Not Available [facility] (Lab) [address] [place], [address], 03/30/2023 13:51:04 03/30/2003/30/2023 COMPR EHENS BRODY METAB OLIC PANEL globulin 2.4 g/dL 2.6-4. 2 low Not Available [facility] (Lab) [address] [place], [address], 03/30/2023 13:51:04 03/30/2003/30/2023 COMPR EHENS BRODY METAB OLIC PANEL A/G ratio 1.7 ratio 1.0-2. 0 Not Available [facility] (Lab) [address] [place], [address], 03/30/2023 13:51:04 03/30/2003/30/2023 LIPID PANEL cholesterol 134 mg/dL 140-19 9 low [facility] OSMEL NSUS RECOM MENDA TION FOR JERAMY STERO L: ADULT CHILD LOW RISK: <200 <170 BORDE RLINE : <200- 239 ----- HIGH RISK: >240 >200 Not Available [facility] (Lab) [address] [place], [address], 03/30/2023 13:51:21 03/30/2003/30/2023 LIPID PANEL triglyceride s 289 mg/dL 0-150 high NIH OSMEL NSUS REPOR T RECOM MENDA TION FOR TRIGL YCERI GEORGE: ADULT CHILD LOW RISK: <150 ----- BODER LINE: 150-1 99 ----- HIGH RISK: >200 ----- Not Available [facility] (Lab) [address] [place], [address], 03/30/2023 13:51:21 03/30/2003/30/2023 LIPID PANEL HDL cholesterol 35 mg/dL 40- low Not Available [facility] (Lab) [address] [place], [address], 03/30/2023 13:51:21 03/30/2003/30/2023 LIPID PANEL LDL cholesterol, calculated 41 mg/dL 0-130 NIH OSMEL NSUS REPOR T RECOM MENDA TIONS FOR LDL: ADULT CHILD LOW RISK <130 <110 (OPTI MAL LDL) <100 ----- BORDE RLINE : 130-1 59 ----- HIGH RISK: >160 >130 A TRIGL YCERI DE RESUL T >400 INVAL IDATE S THE CALCU LATIO N FOR LDL FRACT IONAT ION - THE LDL RESUL T WILL NOT BE REPOR JOE. Not Available [facility] (Lab) [address] [place], [address], 03/30/2023 13:51:21 03/30/2003/30/2023 LIPAS E SERUM lipase 159 U/L 23-300 Not Available [facility] (Lab) [address] [place], [address], 03/30/2023 13:51:24 03/30/2003/30/2023 CBC/C OMPLE TE BLD COUNT W/DIF F white blood cells 9.5 x10'3 /uL 4.2-10 .8 Not Available [facility] (Lab) [address] [place], [address], 03/30/2023 13:53:46 03/30/2003/30/2023 CBC/C OMPLE TE BLD COUNT W/DIF F red blood cells 4.61 x10'6 /uL 3.80-5 .20 Not Available [facility] (Lab) [address] [place], [address], 03/30/2023 13:53:46 03/30/2003/30/2023 CBC/C OMPLE TE BLD COUNT W/DIF F hemoglobin 13.7 g/dL 12.0-1 5.6 Not Available [facility] (Lab) [address] [place], [address], 03/30/2023 13:53:46 03/30/2003/30/2023 CBC/C OMPLE TE BLD COUNT W/DIF F hematocrit 42.6 % 35.7-4 5.7 Not Available [facility] (Lab) [address] [place], [address], 03/30/2023 13:53:46 03/30/2003/30/2023 CBC/C OMPLE TE BLD COUNT W/DIF F mean red cell volume 92.4 fL 82.0-9 9.0 Not Available [facility] (Lab) [address] [place], [address], 03/30/2023 13:53:46 03/30/2003/30/2023 CBC/C OMPLE TE BLD COUNT W/DIF F mean red cell hemoglobin 29.7 pg 27.0-3 3.0 Not Available [facility] (Lab) [address] [place], [address], 03/30/2023 13:53:46 03/30/2003/30/2023 CBC/C OMPLE TE BLD COUNT W/DIF F mean RBC HGB concentratio n 32.2 g/dL 31.0-3 6.0 Not Available [facility] (Lab) [address] [place], [address], 03/30/2023 13:53:46 03/30/2003/30/2023 CBC/C OMPLE TE BLD COUNT W/DIF F red cell distribution width 13.0 % 11.8-1 5.5 Not Available [facility] (Lab) [address] [place], [address], 03/30/2023 13:53:46 03/30/2003/30/2023 CBC/C OMPLE TE BLD COUNT W/DIF F platelets 368 x10'3 /uL 150-40 0 Not Available [facility] (Lab) [address] [place], [address], 03/30/2023 13:53:46 03/30/2003/30/2023 CBC/C OMPLE TE BLD COUNT W/DIF F mean platelet volume 11.1 fL 9.0-12 .4 Not Available [facility] (Lab) [address] [place], [address], 03/30/2023 13:53:46 03/30/2003/30/2023 CBC/C OMPLE TE BLD COUNT W/DIF F neutrophils 57.3 % 39.0-7 2.0 Not Available [facility] (Lab) [address] [place], [address], 03/30/2023 13:53:46 03/30/2003/30/2023 CBC/C OMPLE TE BLD COUNT W/DIF F lymphocytes 33.8 % 16.0-4 7.0 Not Available [facility] (Lab) [address] [place], [address], 03/30/2023 13:53:46 03/30/2003/30/2023 CBC/C OMPLE TE BLD COUNT W/DIF F monocytes 6.4 % 5.0-12 .0 Not Available [facility] (Lab) [address] [place], [address], 03/30/2023 13:53:46 03/30/2003/30/2023 CBC/C OMPLE TE BLD COUNT W/DIF F eosinophils 1.7 % 1.0-7. 0 Not Available [facility] (Lab) [address] [place], [address], 03/30/2023 13:53:46 03/30/2003/30/2023 CBC/C OMPLE TE BLD COUNT W/DIF F basophils 0.5 % 0.0-2. 0 Not Available [facility] (Lab) [address] [place], [address], 03/30/2023 13:53:46 03/30/2003/30/2023 CBC/C OMPLE TE BLD COUNT W/DIF F immature granulocytes 0.3 % 0.00-0 .50 Not Available [facility] (Lab) [address] [place], [address], 03/30/2023 13:53:46 03/30/2003/30/2023 CBC/C OMPLE TE BLD COUNT W/DIF F neutrophils, absolute count 5.42 x10'3 /uL 1.5-8. 0 Not Available [facility] (Lab) [address] [place], [address], 03/30/2023 13:53:46 03/30/2003/30/2023 CBC/C OMPLE TE BLD COUNT W/DIF F lymphocytes, absolute count 3.20 x10'3 /uL 1.07-3 .43 Not Available [facility] (Lab) [address] [place], [address], 03/30/2023 13:53:46 03/30/2003/30/2023 CBC/C OMPLE TE BLD COUNT W/DIF F monocytes, absolute count 0.61 x10'3 /uL 0.29-0 .99 Not Available [facility] (Lab) [address] [place], [address], 03/30/2023 13:53:46 03/30/2003/30/2023 CBC/C OMPLE TE BLD COUNT W/DIF F eosinophils, absolute count 0.16 x10'3 /uL 0.02-0 .53 Not Available [facility] (Lab) [address] [place], [address], 03/30/2023 13:53:46 03/30/2003/30/2023 CBC/C OMPLE TE BLD COUNT W/DIF F basophils, absolute count 0.05 x10'3 /uL 0.01-0 .08 Not Available [facility] (Lab) [address] [place], [address], 03/30/2023 13:53:46 03/30/2003/30/2023 CBC/C OMPLE TE BLD COUNT W/DIF F immature granulocytes ,absolute 0.03 x10'3 /uL 0.00-0 .05 Not Available [facility] (Lab) [address] [place], [address], 03/30/2023 13:53:46 03/30/2003/30/2023 CBC/C OMPLE TE BLD COUNT W/DIF F nucleated red blood cells 0.0 % -0 Not Available [facility] (Lab) [address] [place], [address], 03/30/2023 13:53:46 03/30/2003/30/2023 CBC/C OMPLE TE BLD COUNT W/DIF F NRBC# 0.00 x10'3 /uL Not Available [facility] (Lab) [address] [place], [address], 03/30/2023 13:53:46 03/30/2003/30/2023 URINE MICRO SCOPI C EXAM/ IRIS white blood cells 0-8 /i??h pfi?? 0-8 Not Available [facility] (Lab) [address] [place], [address], 03/30/2023 14:01:36 03/30/20 23 03/30/2023 URINE MICRO SCOPI C EXAM/ IRIS red blood cells 0-4 /i??h pfi?? 0-4 Not Available [facility] (Lab) [address] [place], [address], 03/30/2023 14:01:36 03/30/20 23 03/30/2023 URINE MICRO SCOPI C EXAM/ IRIS bacteria MANY abnormal Not Available [facility] (Lab) [address] [facility] [place], [address], 03/30/2023 14:01:36 03/30/20 23 03/30/2023 URINE MICRO SCOPI C EXAM/ IRIS mucous OCCASI ONAL /i??l pfi?? abnormal Not Available [facility] (Lab) [address] [place], [address], 03/30/2023 14:01:36 03/30/20 23 03/30/2023 URINE MICRO SCOPI C EXAM/ IRIS squamous epithelial PACKED FIELD /i??l pfi?? abnormal Not Available [facility] (Lab) [address] [place], [address], 03/30/2023 14:01:36 08/15/19 24 08/15/2023 CBC/C OMPLE TE BLD COUNT W/DIF F white blood cells 9.0 x10'3 /uL 4.2-10 .8 Not Available [facility] (Lab) [address] [place], [address], 08/15/2023 18:14:49 08/15/19 24 08/15/2023 CBC/C OMPLE TE BLD COUNT W/DIF F red blood cells 4.49 x10'6 /uL 3.80-5 .20 Not Available [facility] (Lab) [address] [place], [address], 08/15/2023 18:14:49 08/15/19 24 08/15/2023 CBC/C OMPLE TE BLD COUNT W/DIF F hemoglobin 13.8 g/dL 12.0-1 5.6 Not Available [facility] (Lab) [address] [place], [address], 08/15/2023 18:14:49 08/15/19 24 08/15/2023 CBC/C OMPLE TE BLD COUNT W/DIF F hematocrit 42.4 % 35.7-4 5.7 Not Available [facility] (Lab) [address] [place], [address], 08/15/2023 18:14:49 08/15/19 24 08/15/2023 CBC/C OMPLE TE BLD COUNT W/DIF F mean red cell volume 94.4 fL 82.0-9 9.0 Not Available [facility] (Lab) [address] [place], [address], 08/15/2023 18:14:49 08/15/19 24 08/15/2023 CBC/C OMPLE TE BLD COUNT W/DIF F mean red cell hemoglobin 30.7 pg 27.0-3 3.0 Not Available [facility] (Lab) [address] [place], [address], 08/15/2023 18:14:49 08/15/19 24 08/15/2023 CBC/C OMPLE TE BLD COUNT W/DIF F mean RBC HGB concentratio n 32.5 g/dL 31.0-3 6.0 Not Available [facility] (Lab) [address] [place], [address], 08/15/2023 18:14:49 08/15/19 24 08/15/2023 CBC/C OMPLE TE BLD COUNT W/DIF F red cell distribution width 13.1 % 11.8-1 5.5 Not Available [facility] (Lab) [address] [place], [address], 08/15/2023 18:14:49 08/15/19 24 08/15/2023 CBC/C OMPLE TE BLD COUNT W/DIF F platelets 328 x10'3 /uL 150-40 0 Not Available [facility] (Lab) [address] [place], [address], 08/15/2023 18:14:49 08/15/19 24 08/15/2023 CBC/C OMPLE TE BLD COUNT W/DIF F mean platelet volume 11.7 fL 9.0-12 .4 Not Available [facility] (Lab) [address] [place], [address], 08/15/2023 18:14:49 08/15/19 24 08/15/2023 CBC/C OMPLE TE BLD COUNT W/DIF F neutrophils 48.8 % 39.0-7 2.0 Not Available [facility] (Lab) [address] [place], [address], 08/15/2023 18:14:49 08/15/19 24 08/15/2023 CBC/C OMPLE TE BLD COUNT W/DIF F lymphocytes 40.8 % 16.0-4 7.0 Not Available [facility] (Lab) [address] [place], [address], 08/15/2023 18:14:49 08/15/19 24 08/15/2023 CBC/C OMPLE TE BLD COUNT W/DIF F monocytes 7.3 % 5.0-12 .0 Not Available [facility] (Lab) [address] [place], [address], 08/15/2023 18:14:49 08/15/19 24 08/15/2023 CBC/C OMPLE TE BLD COUNT W/DIF F eosinophils 2.2 % 1.0-7. 0 Not Available [facility] (Lab) [address] [place], [address], 08/15/2023 18:14:49 08/15/19 24 08/15/2023 CBC/C OMPLE TE BLD COUNT W/DIF F basophils 0.7 % 0.0-2. 0 Not Available [facility] (Lab) [address] [place], [address], 08/15/2023 18:14:49 08/15/19 24 08/15/2023 CBC/C OMPLE TE BLD COUNT W/DIF F immature granulocytes 0.2 % 0.00-0 .50 Not Available [facility] (Lab) [address] [place], [address], 08/15/2023 18:14:49 08/15/19 24 08/15/2023 CBC/C OMPLE TE BLD COUNT W/DIF F neutrophils, absolute count 4.37 x10'3 /uL 1.5-8. 0 Not Available [facility] (Lab) [address] [place], [address], 08/15/2023 18:14:49 08/15/19 24 08/15/2023 CBC/C OMPLE TE BLD COUNT W/DIF F lymphocytes, absolute count 3.65 x10'3 /uL 1.07-3 .43 high Not Available [facility] (Lab) [address] [place], [address], 08/15/2023 18:14:49 08/15/19 24 08/15/2023 CBC/C OMPLE TE BLD COUNT W/DIF F monocytes, absolute count 0.65 x10'3 /uL 0.29-0 .99 Not Available [facility] (Lab) [address] [place], [address], 08/15/2023 18:14:49 08/15/19 24 08/15/2023 CBC/C OMPLE TE BLD COUNT W/DIF F eosinophils, absolute count 0.20 x10'3 /uL 0.02-0 .53 Not Available [facility] (Lab) [address] [place], [address], 08/15/2023 18:14:49 08/15/19 24 08/15/2023 CBC/C OMPLE TE BLD COUNT W/DIF F basophils, absolute count 0.06 x10'3 /uL 0.01-0 .08 Not Available [facility] (Lab) [address] [place], [address], 08/15/2023 18:14:49 08/15/19 24 08/15/2023 CBC/C OMPLE TE BLD COUNT W/DIF F immature granulocytes ,absolute 0.02 x10'3 /uL 0.00-0 .05 Not Available [facility] (Lab) [address] [place], [address], 08/15/2023 18:14:49 08/15/19 24 08/15/2023 CBC/C OMPLE TE BLD COUNT W/DIF F nucleated red blood cells 0.0 % -0 Not Available [facility] (Lab) [address] [place], [address], 08/15/2023 18:14:49 08/15/19 24 08/15/2023 CBC/C OMPLE TE BLD COUNT W/DIF F NRBC# 0.00 x10'3 /uL Not Available [facility] (Lab) [address] [place], [address], 08/15/2023 18:14:49 08/15/19 24 08/15/2023 LIPID PANEL cholesterol 161 mg/dL 140-19 9 NIH OSMEL NSUS RECOM MENDA TION FOR JERAMY STERO L: ADULT CHILD LOW RISK: <200 <170 BORDE RLINE : <200- 239 ----- HIGH RISK: >240 >200 Not Available [facility] (Lab) [address] [place], [address], 08/15/2023 19:15:42 08/15/19 24 08/15/2023 LIPID PANEL triglyceride s 427 mg/dL 0-150 high NIH OSMEL NSUS REPOR T RECOM MENDA TION FOR TRIGL YCERI GEORGE: ADULT CHILD LOW RISK: <150 ----- BODER LINE: 150-1 99 ----- HIGH RISK: >200 ----- Not Available [facility] (Lab) [address] [place], [address], 08/15/2023 19:15:42 08/15/19 24 08/15/2023 LIPID PANEL HDL cholesterol 35 mg/dL 40- low Not Available [facility] (Lab) [address] [place], [address], 08/15/2023 19:15:42 08/15/19 24 08/15/2023 COMPR EHENS BRODY METAB OLIC PANEL sodium 138 mmol/ L 137-14 5 Not Available [facility] (Lab) [address] [place], [address], 08/15/2023 19:15:48 08/15/19 24 08/15/2023 COMPR EHENS BRODY METAB OLIC PANEL potassium 4.0 mmol/ L 3.5-5. 1 Not Available [facility] (Lab) [address] [place], [address], 08/15/2023 19:15:48 08/15/19 24 08/15/2023 COMPR EHENS BRODY METAB OLIC PANEL chloride 105 mmol/ L 98-107 Not Available [facility] (Lab) [address] [place], [address], 08/15/2023 19:15:48 08/15/19 24 08/15/2023 COMPR EHENS BRODY METAB OLIC PANEL carbon dioxide 29 mmol/ L 22-30 Not Available [facility] (Lab) [address] [place], [address], 08/15/2023 19:15:48 08/15/19 24 08/15/2023 COMPR EHENS BRODY METAB OLIC PANEL anion gap 8.0 mmol/ L 14-22 low Not Available [facility] (Lab) [address] [place], [address], 08/15/2023 19:15:48 08/15/19 24 08/15/2023 COMPR EHENS BRODY METAB OLIC PANEL glucose 98 mg/dL 70-99 Not Available [facility] (Lab) [address] [place], [address], 08/15/2023 19:15:48 08/15/19 24 08/15/2023 COMPR EHENS BRODY METAB OLIC PANEL BUN 16 mg/dL 8-19 Not Available [facility] (Lab) [address] [place], [address], 08/15/2023 19:15:48 08/15/19 24 08/15/2023 COMPR EHENS BRODY METAB OLIC PANEL creatinine 0.82 mg/dL 0.66-1 .25 Not Available [facility] (Lab) [address] [place], [address], 08/15/2023 19:15:48 08/15/19 24 08/15/2023 COMPR EHENS BRODY METAB OLIC PANEL GFR >60 Refer ence Range : [place] ge GFR Healt hy Adult : >60 mL/mi n/1.7 3 m2 Chron ic Kidne y Disea se: 15-60 mL/mi n/1.7 3 m2 Kidne y Failu re: <15/m L/min /1.73 m2 www.n iddk. nih.g ov The MDRD study equat ion has not been valid ated in child adrian <18 years of age; pregn ant women ; the elder ly >85 years of age; or in some racia l or ethni c subgr oups, such as Hisfelicia nics. Outsi de the valid ated marleny eters , estim ated GFR is less accur ate, requi ring clini nicci judgm ent on a case- by-ca se basis . Clini nicci inter preta tion for other races and ages must be made by the clini jose. The MDRD study equat ion has not been valid ated for the evalu ation of serum creat inine relat ed to nutri robbin l statu s or medic ation usage . For perso ns <18 years of age, a pedia tric GFR calcu lator is avail able on the [facility] websi te: https :[email or web address] chambers.nery madera.o rg/pr ofess ional s/kdo qi/gf r_cal culat or Not Available [facility] (Lab) [address] [place], [address], 08/15/2023 19:15:48 08/15/19 24 08/15/2023 COMPR EHENS BRODY METAB OLIC PANEL alkaline phosphatase 88 U/L 38-126 Not Available [facility] (Lab) [address] [place], [address], 08/15/2023 19:15:48 08/15/19 24 08/15/2023 COMPR EHENS BRODY METAB OLIC PANEL alanine aminotransfe rase 12 U/L 0-35 Not Available [facility] (Lab) [address] [place], [address], 08/15/2023 19:15:48 08/15/19 24 08/15/2023 COMPR EHENS BRODY METAB OLIC PANEL aspartate aminotransfe rase 19 U/L 15-37 Not Available [facility] (Lab) [address] [place], [address], 08/15/2023 19:15:48 08/15/19 24 08/15/2023 COMPR EHENS BRODY METAB OLIC PANEL bilirubin, total 0.40 mg/dL 0.20-1 .30 Not Available [facility] (Lab) [address] [place], [address], 08/15/2023 19:15:48 08/15/19 24 08/15/2023 COMPR EHENS BRODY METAB OLIC PANEL calcium 9.3 mg/dL 8.4-10 .2 Not Available [facility] (Lab) [address] [place], [address], 08/15/2023 19:15:48 08/15/19 24 08/15/2023 COMPR EHENS BRODY METAB OLIC PANEL total protein 6.3 g/dL 6.3-8. 2 Not Available [facility] (Lab) [address] [place], [address], 08/15/2023 19:15:48 08/15/19 24 08/15/2023 COMPR EHENS BRODY METAB OLIC PANEL albumin 3.9 g/dL 3.0-4. 4 Not Available [facility] (Lab) [address] [place], [address], 08/15/2023 19:15:48 08/15/19 24 08/15/2023 COMPR EHENS BRODY METAB OLIC PANEL globulin 2.4 g/dL 2.6-4. 2 low Not Available [facility] (Lab) [address] [place], [address], 08/15/2023 19:15:48 08/15/19 24 08/15/2023 COMPR EHENS BRODY METAB OLIC PANEL A/G ratio 1.6 ratio 1.0-2. 0 Not Available [facility] (Lab) [address] [place], [address], 08/15/2023 19:15:48 09/07/19 22 09/07/2021 XR, chest , [address] [facility] [address] [facility] [place] [address] Karla ross Name: YASMIN FREDERICK Access ion #: [id number] Sex: F : 1944 3 Locati on: RAD Attend ing Physic juan m: LINDA HARRIS Orderi ng Physic juan m: LINDA HARRIS Exam Date: 11:25 AM Exam Name: XR CHEST 2V Admitt ing Diagno sis(es ): RADIOL OGY REPORT - FINAL EXAM: XR CHEST 2V HISTOR Y: COUGH 76-yea r-old female with cough, chest heavin ess, wheezi ng, COVID infect ion Decemb er 2020, 52 year histor y of smokin g. COMPAR PARTHA: None availa ble. TECHNI QUE: 2 views of the chest were perfor med. FINDIN GS: No pneumo thorax , pulmon keo edema, or consol idativ e infilt rates. The heart is not enlarg ed. No fractu res are identi fied about the bony thorax . There is mild thorac ic degene rative disc diseas e. IMPRES DAVIDA: Page 1 of [address] [facility] Karla ross Name: YASMIN FREDERICK Access ion #: [id number] Sex: F : 1944 3 Exam Date: 11:25 AM Exam Name: XR CHEST 2V Admitt ing Diagno sis(es ): No acute intrat horaci c proces s. Create d and electr onical ly signed by: Derrick dominguez MD Signed Date: 11:56 AM (CT) Dictat ed by: Derrick dominguez MD DD: 11:56 AM (CT) DT: 11:56 AM (CT) Page 2 of 2 [id number] [facility] (Imaging) [address] [place], [address], 10/06/2022 02:55:09 Result Notes Documentation Provider Name and Address Organization Details Recorded Time Xr, Chest, 2 View : [facility] [address] [place] [address] Patient Name: YASMIN RUBIO Sex: F : 1945 Location: [facility] Attending Physician: CHENCHO HARRIS Ordering Physician: CHENCHO HARRIS Exam Date: 09/07/2021 11:25 AM Exam Name: XR CHEST 2V Admitting Diagnosis(es): RADIOLOGY REPORT - FINAL EXAM: XR CHEST 2V HISTORY: COUGH 76-year-old female with cough, chest heaviness, wheezing, COVID infection July 2021, 50 year history of smoking. COMPARISON: None available. TECHNIQUE: 2 views of the chest were performed. FINDINGS: No pneumothorax, pulmonary edema, or consolidative infiltrates. The heart is not enlarged. No fractures are identified about the bony thorax. There is mild thoracic degenerative disc disease. IMPRESSION: Page 1 of 2 [facility] Patient Name: YASMIN RUBIO Sex: F : 1945 Exam Date: 09/07/2021 11:25 AM Exam Name: XR CHEST 2V Admitting Diagnosis(es): No acute intrathoracic process. Created and electronically signed by: Derrick Nieves MD Signed Date: 09/07/2021 11:56 AM (CT) Dictated by: Derrick Nieves MD (CT) (CT) Page 2 of 2 Not Available [facility] 10/06/2022 02:55:11 Problems Name Problem SNOMED Code Status Onset Date Resolution Date Notes Provider Name and Address Organization Details Recorded Time Benign essential hypertension 4293530 Active Not Available [facility] 4 07:19:54 Pure hypercholeste rolemia 076569822 Active Not Available [facility] 4 07:19:54 Vitamin D deficiency 39467549 Active Not Available [facility] 4 07:19:55 Anxiety 17525838 Active Not Available [facility] 4 07:19:55 Skin lesion 07475942 Active Not Available [facility] 4 07:19:55 Cough 29862760 Active 2021 Not Available [facility] 4 07:19:55 Kidney stone 21739756 Active 2022 Not Available [facility] 4 07:19:55 Upper respiratory infection 41148178 Active 2022 Not Available [facility] 4 07:19:55 Essential hypertension 56254287 Active 2022 Not Available [facility] 4 07:19:55 Abdominal pain 18252058 Active 2022 Not Available [facility] 4 07:19:54 Problem Notes None recorded. Procedures Surgical History Date Name Laterality Status Provider Name and Address Organization Details Recorded Time 04/11/20 19 Most Recent Bone Density completed Not Available [facility] 10/06/2022 02:42:53 02/06/20 18 Cataract Surgery completed Not Available [facility] 08/2022 02:42:55 03/20/20 14 Date of Last Colonoscopy completed Not Available [facility] 10/06/2022 02:42:53 Genitourinary Surgery completed Not Available [facility] 10/06/2022 02:42:55 other completed Not Available [facility] 08/2022 02:42:55 Genitourinary Surgery completed Not Available [facility] 10/06/2022 02:42:55 INPUT OUTPUT CLERK Surgery completed Not Available [facility] 10/06/2022 02:42:55 Tonsillectomy completed Not Available [facility] 10/06/2022 02:42:55 Imaging Results None recorded. Procedure Notes None recorded. Medical Equipment None Reported. Allergies No known drug allergies Medications Name Sig Start Date Stop Date Status Note LastModified by Organization Details LastModified Time amoxicilli n 500 mg capsule TAKE 1 CAPSULE BY MOUTH EVERY 8 HOURS UNTIL ALL TAKEN 04/05 completed Not Available Not Available Not Available atorvastat in 20 mg tablet TAKE 1 TABLET BY MOUTH DAILY 03/10 completed Not Available Not Available Not Available atorvastat in 10 mg tablet TAKE 1 TABLET BY MOUTH DAILY 2023 active Not Available Not Available Not Avai lable oxybutynin chloride ER 10 mg tablet,ext ended release 24 hr TAKE 1 TABLET BY MOUTH DAILY 09/27 completed Not Available Not Available Not Available azithromyc in 250 mg tablet TAKE 2 TABLETS (500 MG) BY ORAL ROUTE ONCE DAILY FOR 1 DAY THEN 1 TABLET (250 MG) BY ORAL ROUTE ONCE DAILY FOR 4 DAYS 11/30 completed Not Available Not Available Not Available ofloxacin 0.3 % eye drops 03/12 completed Not Available Not Available Not Available metoprolol succinate ER 50 mg tablet,ext ended release 24 hr TAKE 1 TABLET BY MOUTH TWICE DAILY DIRECTED 2023 active Not Available Not Available Not Avai lable hydrocodon e 5 mg-acetami nophen 325 mg tablet 12/07 completed Not Available Not Available Not Available ondansetro n HCl 4 mg tablet 12/07 completed Not Available Not Available Not Available prednisone 20 mg tablet 01/29 completed Not Available Not Available Not Available Doc-Q-Lace 100 mg capsule TK ONE C PO BID FOR CONSTIPA TION 02/17 completed Not Available Not Available Not Available penicillin V potassium 500 mg tablet 11/28 completed Not Available Not Available Not Available acetaminop hen 300 mg-codeine 30 mg tablet TAKE 1 TO 2 TABLETS EVERY 6 HOURS NEEDED FOR PAIN 11/03 completed Not Available Not Available Not Available ciprofloxa jessica 500 mg tablet 12/07 completed Not Available Not Available Not Available sulfametho xazole 800 mg-trimeth oprim 160 mg tablet 12/07 completed Not Available Not Available Not Available peg-electr olyte solution 420 gram oral solution 03/27 completed Not Available Not Available Not Available aspirin 81 mg tablet,del ayed release Take 1 tablet every day by oral route. 04/17 completed Not Available Not Available Not Available lamotrigin e 25 mg tablet 01/29 completed Not Available Not Available Not Available ketorolac 0.5 % eye drops 03/10 completed Not Available Not Available Not Available oxycodone- acetaminop hen 5 mg-325 mg tablet TK 1 T PO Q 4 TO 6 H PRN P 03/12 completed Not Available Not Available Not Available amoxicilli n 875 mg tablet TAKE 1 TABLET BY MOUTH EVERY 12 HOURS FOR 10 DAYS 09/27 completed Not Available Not Available Not Available alprazolam 0.25 mg tablet TAKE 1 TABLET BY MOUTH FOUR TIMES DAILY active Not Available Not Available No t Available prednisolo ne acetate 1 % eye drops,susp ension 03/12 completed Not Available Not Available Not Available tamsulosin 0.4 mg capsule TK 1 C PO HS 12/07 completed Not Available Not Available Not Available benzonatat e 100 mg capsule TK 1 C PO TID PRF COUGH 07/14 completed Not Available Not Available Not Available lisinopril 10 mg tablet TAKE 1 TABLET BY MOUTH EVERY DAY active Not Available Not Available No t Available ibuprofen 400 mg tablet TK ONE T PO Q 4 H PRF PAIN 02/17 completed Not Available Not Available Not Available Advair Diskus 250 mcg-50 mcg/dose powder for inhalation Inhale 1 puff twice a day by inhalati on route. 03/27 completed Not Available Not Available Not Available oxybutynin chloride ER 5 mg tablet,ext ended release 24 hr 04/05 completed Not Available Not Available Not Available gabapentin 300 mg capsule 02/10 completed Not Available Not Available Not Available magnesium citrate oral solution TK UTD 03/27 completed Not Available Not Available Not Available hydroxyzin e HCl 25 mg tablet Take 1 tablet twice a day by oral route as needed. active Not Available Not Available No t Available gabapentin 100 mg capsule 03/12 completed Not Available Not Available Not Available cefuroxime axetil 500 mg tablet 01/29 completed Not Available Not Available Not Available Vitamin D2 1,250 mcg (50,000 unit) capsule TAKE 1 CAPSULE BY MOUTH ONCE MONTHLY 09/27 completed Not Available Not Available Not Available oxybutynin chloride 5 mg tablet 12/07 completed Not Available Not Available Not Available ondansetro n 4 mg disintegra ting tablet DIS 1 T ON THE TONGUE Q 12 H 12/07 completed Not Available Not Available Not Available cefdinir 300 mg capsule Take 1 capsule every 12 hours by oral route for 10 days. 03/30 completed Not Available Not Available Not Available fluticason e propionate 50 mcg/actuat ion nasal spray,susp ension USE 1 SPRAY IN EACH NOSTRIL EVERY DAY active Not Available Not Available No t Available lamotrigin e 100 mg tablet 11/03 completed Not Available Not Available Not Available amoxicilli n 875 mg-potassi um clavulanat e 125 mg tablet TK 1 T PO BID TAT 12/07 completed Not Available Not Available Not Available Ventolin HFA 90 mcg/actuat ion aerosol inhaler INHALE 2 PUFFS BY MOUTH EVERY 4 HOURS NEEDED active Not Available Not Available No t Available oxycodone 5 mg tablet TK ONE T PO Q 4 H PRF PAIN 12/07 completed Not Available Not Available Not Available Premarin 0.3 mg tablet TAKE 1 TABLET BY MOUTH DAILY 08/15 completed taking once every other day Not Available Not Available Not Available Premarin 0.625 mg tablet TAKE 1 TABLET BY MOUTH EVERY OTHER DAY active Not Available Not Available No t Available Crestor 20 mg tablet Take 1 tablet every day by oral route as directed for 90 days. 07/24 completed Not Available Not Available Not Available chlorhexid ine gluconate 0.12 % mouthwash SWISH AND SPIT 15ML TID AFTER MEALS 02/10 completed Not Available Not Available Not Available fenofibrat e nanocrysta llized 48 mg tablet Take 1 tablet by mouth every day 09/03 completed Not Available Not Available Not Available Symbicort 80 mcg-4.5 mcg/actuat ion HFA aerosol inhaler Inhale 2 puffs twice a day by inhalati on route. 07/24 completed Not Available Not Available Not Available fenofibrat e 50 mg capsule one tablet daily 10/23 completed Not Available Not Available Not Available fenofibrat e 54 mg tablet Take 1 tablet by mouth every day 03/10 completed Not Available Not Available Not Available krill oil 03/02 completed Not Available Not Available Not Available Fluvirin 1592-2302 45 mcg (15 mcg x 3)/0.5 mL intramuscu lar suspension ADM 0.5ML UTD active Not Available Not Available No t Available Virtussin AC 10 mg-100 mg/5 mL oral liquid TK 7.5ML PO Q 6 H PRF COUGH 01/29 completed Not Available Not Available Not Available Restasis MultiDose 0.05 % eye drops 11/03 completed Not Available Not Available Not Available Vitals Date Recorded Body height Body mass index (BMI) Body weight Body temperature Heart rate Systolic And Diastolic Provider Name and Address Organization Details Last Updated DateTime 4 160.02 cm 23.9 kg/m2 85298.9 7 g 98.1 [degF] 60 /min 132/86 mm[Hg] PJ Teran [place] [facility] 4 14:43:09 Date Recorded Body mass index (BMI) Body height Oxygen saturation Oxygen saturation in Arterial blood by Pulse oximetry Pain severity - 0-10 verbal numeric rating [Score] - Reported Heart rate Respiratory rate Body temperature Body weight Systolic And Diastolic Provider Name and Address Organization Details Last Updated DateTime 2 26.4 kg/m2 160.02 cm 97 % 97 % 0 64 /min 12 /min 95.9 [degF] 38385.2 6 g 126/82 mm[Hg] Not Available [facility] 3 02:47:05 Date Recorded Body mass index (BMI) Body height Pain severity - 0-10 verbal numeric rating [Score] - Reported Heart rate Body temperature Body weight Systolic And Diastolic Provider Name and Address Organization Details Last Updated DateTime 3 25.3 kg/m2 160.02 cm 0 60 /min 97.7 [degF] 41883.7 1 g 138/80 mm[Hg] Not Available [facility] 3 02:47:05 Date Recorded Heart rate Systolic And Diastolic Provider Name and Address Organization Details Last Updated DateTime 09/28/2022 60 /min 140/70 mm[Hg] Not Available [facility] 10/06/2022 02:47:05 Date Recorded Body mass index (BMI) Body height Heart rate Body temperature Body weight Systolic And Diastolic Provider Name and Address Organization Details Last Updated DateTime 2 26.2 kg/m2 160.02 cm 72 /min 97.5 [degF] 81368.6 7 g 136/90 mm[Hg] Not Available [facility] 3 02:47:05 Date Recorded Body height Body mass index (BMI) Body weight Body temperature Heart rate Oxygen saturation Oxygen saturation in Arterial blood by Pulse oximetry Systolic And Diastolic Provider Name and Address Organization Details Last Updated DateTime 3 160.02 cm 24.1 kg/m2 01246.5 6 g 97.4 [degF] 60 /min 98 % 98 % 134/70 mm[Hg] Ely Ryan [place] - [facility] 3 11:27:42 Date Recorded Body mass index (BMI) Body height Heart rate Body temperature Body weight Systolic And Diastolic Provider Name and Address Organization Details Last Updated DateTime 2 26.4 kg/m2 160.02 cm 59 /min 98.2 [degF] 43989.2 6 g 122/80 mm[Hg] Not Available [facility] 3 02:47:05 Social History Question Answer Notes LastModified by Organization Details LastModified Time Tobacco Smoking Status Current Some Day Smoker Not Available [facility] 10/06/2022 02:41:18 Do You Have An Advance Directive? Yes MIGRATION.0301 [id number] Information not available 10/06/2022 Do You Wear A Helmet When Biking? No Pt Does Not Bike MIGRATION.0301 [id number] Information not available 10/06/2022 Are You Blind Or Do You Have Difficulty Seeing? No MIGRATION.0301 [id number] Information not available 10/06/2022 What Is Your Level Of Caffeine Consumption? Moderate MIGRATION.0301 667283 Information not available 10/06/2022 How Much Tobacco Do You Chew? None MIGRATION.0301 198940 Information not available 10/06/2022 What Is Your Code Status? DNR MIGRATION.030 [id number] Information not available 10/06/2022 In The 14 Days Before Symptom Onset, Have You Had Close Contact With A Laboratory-confi rmed COVID-19 While That Case Was Ill? No MIGRATION.030 [id number] Information not available 10/06/2022 In The 14 Days Before Symptom Onset, Have You Had Close Contact With A Person Who Is Under Investigation For COVID-19 While That Person Was Ill? No MIGRATION.0301 900656 Information not available 10/06/2022 Are You Deaf Or Do You Have Serious Difficulty Hearing? No MIGRATION.0301 752668 Information not available 10/06/2022 What Type Of Diet Are You Following? REGULAR MIGRATION.0301 975699 Information not available 10/06/2022 Which Illicit Or Recreational Drugs Have You Used? None MIGRATION.0301 942417 Information not available 10/06/2022 What Is The Highest Grade Or Level Of School You Have Completed Or The Highest Degree You Have Received? [id number] MIGRATION.030 499560 Information not available 10/06/2022 How Many Days Of Moderate To Strenuous Exercise, Like A Brisk Walk, Did You Do In The Last 7 Days? 0 MIGRATION.030 880475 Information not available 10/06/2022 Have There Been Any Changes To Your Family Or Social Situation? No MIGRATION.0301 523114 Information not available 10/06/2022 What Is The Fluoride Status Of Your Home? Unknown MIGRATION.030 220961 Information not available 10/06/2022 Are There Any Guns Present In Your Home? No MIGRATION.0301 231884 Information not available 10/06/2022 Do You Use Insect Repellent Routinely? No MIGRATION.0301 215983 Information not available 10/06/2022 Where Do You Live? SingleLevelHouse MIGRATION.030 974532 Information not available 10/06/2022 Do You Have A Medical Power Of Display Trimmer? Yes MIGRATION.030 272726 Information not available 10/06/2022 What Was The Date Of Your Most Recent Tobacco Screening? 08/15/2023 [email or web address] Information not available 08/15/2023 What Is Your Current Pack Years? 30ormorepackyears MIGRATION.0301 701551 Information not available 10/06/2022 Have You Ever Been Counseled For Unhealthy Alcohol Use? No MIGRATION.0301 996954 Information not available 10/06/2022 Do You Have Any Pets? Yes 1 Dog MIGRATION.030 359311 Information not available 10/06/2022 What Is Your Relationship Status? MIGRATION.030 671013 Information not available 10/06/2022 Do You Use Your Seat Belt Or Car Seat Routinely? Yes MIGRATION.0301 191728 Information not available 10/06/2022 Do You Have Smoke And Carbon Monoxide Detectors In Your Home? Yes MIGRATION.0301 [id number] Information not available 10/06/2022 At What Age Did You Start Smoking Tobacco? 21 MIGRATION.0301 644655 Information not available 10/06/2022 Are You Passively Exposed To Smoke? No MIGRATION.0301 605881 Information not available 10/06/2022 Are There Any Smokers In Your House? Yes Patient Smokes MIGRATION.030 585576 Information not available 10/06/2022 How Much Tobacco Do You Smoke? 0.5 PPD MIGRATION.0301 061012 Information not available 10/06/2022 What Types Of Sporting Activities Do You Participate In? None MIGRATION.0301 239729 Information not available 10/06/2022 Do You Use Sunscreen Routinely? Yes MIGRATION.0301 459860 Information not available 10/06/2022 Has Tobacco Cessation Counseling Been Provided? No MIGRATION.0301 140419 Information not available 10/06/2022 How Many Years Have You Smoked Tobacco? 50 MIGRATION.0301 261255 Information not available 10/06/2022 Have You Recently Traveled Abroad? No MIGRATION.0301 289825 Information not available 10/06/2022 Do You Have Difficulty Walking Or Climbing Stairs? No MIGRATION.0301 560110 Information not available 10/06/2022 Do You Have Any Dietary Restrictions? No MIGRATION.0301 386249 Information not available 10/06/2022 Sex: Female Functional Status Question Answer Note LastModified by Organizat ion Details LastModified Time Do you use any illicit or recreational drugs? No MIGRATION.98677 62749 Information not available 10/06/2022 Do you or have you ever used any other forms of tobacco or nicotine? No MIGRATION.04964 59740 Information not available 10/06/2022 What is your level of alcohol consumption? Occasional very rare MIGRATION.30083 53085 Information not available 10/06/2022 Do you or have you ever used smokeless tobacco? Never used smokeless tobacco MIGRATION.39645 68514 Information not available 10/06/2022 Do you have transportation difficulties? No MIGRATION.47499 99189 Information not available 10/06/2022 Are you able to walk independently without assistance or assistive devices? YESWOREST MIGRATION.83575 71539 Information not available 10/06/2022 Do you have difficulty doing errands alone? No MIGRATION.30914 86794 Information not available 10/06/2022 Are you able to care for yourself independently? Yes MIGRATION.16025 19927 Information not available 10/06/2022 What is your occupation? retired MIGRATION.43436 43651 Information not available 10/06/2022 Do you have difficulty dressing, bathing, grooming, or toileting? No MIGRATION.07504 80418 Information not available 10/06/2022 Do you or have you ever used e-cigarettes or vape? Never used electronic cigarettes MIGRATION.04312 55557 Information not available 10/06/2022 What is your exercise level? Occasional walk MIGRATION.69697 36841 Information not available 10/06/2022 Mental Status Question Answer Note LastModified by Organizat ion Details LastModified Time Do you feel stressed (tense, restless, nervous, or anxious, or unable to sleep at night)? [id number] MIGRATION.[id number] 26 Information not available 10/06/2022 Do you have difficulty concentrating, remembering or making decisions? No MIGRATION.01457639 26 Information not available 10/06/2022 Family History Relationship Description Onset Age of this Age Resolved Age Notes LastModified by Organization Details LastModified Time Mother Anxiety MIGRATION.950 [id number] Not available 10/06/2022 02:42:59 Father Myocardial infarction MIGRATION.738 [id number] Not available 10/06/2022 02:42:59 Sister Basal cell carcinoma of skin MIGRATION.474 [id number] Not available 10/06/2022 02:42:59 Medical History Condition Response NERVE DISEASE N BLINDNESS N RHEUMATIC FEVER N KIDNEY STONES Y BLADDER PROBLEMS N MRSA N OTHER # 1 N POLIO N LUNG DISEASE/DISORDER N RADIATION / CHEMOTHERAPY N COPD N Other # 2 N BLOOD DISEASES N SURGERY N EAR OR HEARING PROBLEMS N MUMPS N DEPRESSION (INCLUDING POST ) N BOWEL PROBLEMS N STROKE/TIA N ULCERS N BENIGN PROSTATIC HYPERPLASIA N MEASLES N MYOCARDIAL INFARCTION N OBESITY N GERD/NAUSEA N ANEURYSM N URINARY/BLADDER/KIDNEY PROBLEMS N CORONARY ARTERY DISEASE (CAD) N ADDICTION CONCERNS N Impotence N ENDOMETRIOSIS N USE OF BLOOD THINNERS N SKIN PROBLEMS N GASTROINTESTINAL DISORDER N PERIPHERAL VASCULAR DISEASE N MUSCLE,JOINT OR BONE PROBLEMS N GASTROINTESTINAL BLEEDING N BLOOD CLOTS N ASTHMA N CATARACTS N ERECTILE DYSFUNCTION N VARICOSITIES N GI PROBLEMS N Low Testosterone N INFERTILITY N AIDS/HIV N CHEMOTHERAPY / RADIATION N LIVER DISEASE N MALE HYPOGONADISM N HYPERTENSION Y Deficiency Y ANXIETY DISORDER Y BLOOD TRANSFUSION N ANEMIA/BLOOD DISORDER N CHRONIC EAR INFECTIONS N BRONCHITIS N TUBERCULOSIS N GLAUCOMA N FOOT PROBLEM N DIVERTICULITIS N SLEEP APNEA N CHICKENPOX N INFECTIOUS DISEASE N PROSTATE N HEART ARRHYTHMIA N INSOMNIA N HIGH CHOLESTEROL / HYPERLIPIDEMIA Y EYE PROBLEMS N HYPERTHYROIDISM N NEUROLOGICAL PROBLEMS N EDEMA N CHRONIC PAIN SYNDROME N HYPOTHYROIDISM N CAROTID BLOCKAGE N CONSTIPATION N BACK / NECK PROBLEMS Y HAVE YOU BEEN HOSPITALIZED OR SEEN IN [facility] IN THE PAST YEAR ? N ATHEROSCLEROSIS N BREAST PROBLEMS N DIALYSIS N ECZEMA N OSTEOPOROSIS N ARTHRITIS N APPENDICITIS N DIABETES, TYPE N BAD TEETH N ENT N HEARTBURN / REFLUX N AUTISM SPECTRUM DISORDER (ASD) N HEPATITIS / LIVER DISEASE N GOUT N SLEEP DISORDER N ALZHEIMER'S DISEASE N Brain Problems N DEMENTIA N HERPES N SEIZURES/EPILEPSY N HEADACHES/MIGRAINES N VASCULAR DISEASE N PACEMAKER N Blood Disorder N DIZZINESS N HEART DISEASE/HEART PROBLEMS N KIDNEY DISEASE N MULTIPLE SCLEROSIS N CANCER: SPECIFY N CARDIAC ARRHYTHMIA N ATRIAL FIBRILLATION N Gall Stones N PULMONARY EMBOLISM N AUTOIMMUNE DISEASE N Gynecological History Statement/Question Response Date of Last Mammogram 05/21/2020 Date of Last Colonoscopy 03/20/2014 Date of LMP 08/08/1982 Most Recent Bone Density 04/11/2019 Date of Last Pap Current Control Method Hysterectom y Obstetrics History GPAL:G 3 P 3 0 0 3 Type Value Full Term 3 Living 3 Total 3 Immunizations Vaccine Type Date Status Note Provider Nam e and Address Organization Details Recorded Time COVID-19, mRNA, LNP-S, PF, 100 mcg/0.5mL dose or 50 mcg/0.25mL dose 1 completed Not Available [facility] 08/20/2023 07:19:55 COVID-19, mRNA, LNP-S, PF, 100 mcg/0.5mL dose or 50 mcg/0.25mL dose 1 completed Not Available [facility] 08/20/2023 07:19:55 Influenza, split virus, trivalent, preservative 1 completed Not Available [facility] 08/20/2023 07:19:55 Influenza, split virus, trivalent, preservative 4 completed Not Available [facility] 08/20/2023 07:19:55 Past Encounters Encounter ID Performer Location Encounter Start Date Encounter Closed Date Diagnosis/Indication Diagnosis SNOMED-CT Code Diagnosis ICD10 Code Diagnosis IMO Codes Diagnosis Note [id number] Chencho Harris MD [facility] Internal Med [facility] [address] [facility] [address] [place] [address] 11/03/2020 00:00:00 11/24/2020 22:20:25 [id number] Chencho Harris MD [facility] Internal Med [place] [address] [facility] [address] [address] 03/02/2021 00:00:00 03/07/2021 17:45:18 [id number] Chencho Harris MD [facility] Internal Med [facility] 15 [address]43 [facility] [address] 09/07/2021 00:00:00 09/07/2021 22:37:09 [id number] Chencho Harris MD [facility] Internal Med [facility] 15 2043 [facility] [address] [address] 11/30/2021 00:00:00 12/20/2021 15:51:58 [id number] Chencho Harris MD [facility] Internal Med [facility] 2043 [facility] [address] [address] 04/05/2022 00:00:00 04/05/2022 21:46:19 [id number] Chencho Harris MD [facility] Internal Med [facility] 2043 [facility] [address] 03/30/2023 11:10:59 03/30/2023 11:53:10 Benign essential hypertension 9186969 I10 Abdominal pain 62230928 R10.9 Anxiety 63982186 F41.9 Pure hypercholesterolemia 666635656 E78.00 [id number] Chencho Harris MD [facility] Internal Med [facility] [address] [address] 08/15/2023 14:34:36 08/15/2023 15:53:51 Benign essential hypertension 4959648 I10 Renewal of prescription 773304091 Z76.0 Essential hypertension 01119292 I10 Anxiety 43846393 F41.9 Health Concerns Section Related Observation LastModified by Organization Detai ls LastModified Time None Recorded Concern Status LastModified by Organization Details LastModified Time None Recorded Advance Directives Directive Y: Payers Insurance Date Sequence Insurance Name Policy Number Policy Carreno Covered Member ID Carreno Member ID Guarantor Name 08/12/2023 1 [place] Yasmin Rubio [id number] Yasmin Rubio 08/12/2023 2 [facility] [place]MEDICARE SUPPLEMENT) [id number] Yasmin Rubio [id number] Yasmin Rubio Notes Date Note Type Note Provider Name and Address Organization Details Recorded Time 03/30/2023 text/html hypertension no headache no dizziness hyperlipidemia taking her medication Try to follow low-fat diet anxiety is been stable she had an episode where she got some epigastric discomfort sick for a day or 2 and that seems to have gone away Chencho Harris MD [address], [place], [address], [employer] 03/30/2023 22:22:24 08/15/2023 text/html hypertension no headache no dizziness hyperlipidemia taking her medication Try to follow low-fat diet anxiety is been stable Chencho Harris MD [address], [place], [address], [employer] 08/15/2023 22:47:21 OBGyn Episode No OBEpisode recorded.
--- OUTSIDE RECORDS SUMMARY | 2025-05-29 20:13 | XMS_ITS | Encounter Summary ---
Author Organization [employer] Address 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
--- OUTSIDE RECORDS SUMMARY | 2025-05-29 20:14 | XMS_ITS | Clinical Summary ---
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 Gender Identity Not on file Sexual Orientation Not on file Plan of Treatment Health Maintenance Due Date Last Done Comments DTAP/TDAP/TD VACCINES (1 - Tdap) 1966 PNEUMOCOCCAL VACCINE 50+ YEARS (1 of 1 - PCV) 06/16/19 97 ZOSTER VACCINE (1 of 2) 1997 OSTEOPOROSIS SCREENING 2012 RSV VACCINE (60+ or ) (1 - 1-dose 75+ series) 2022 INFLUENZA VACCINE (#1) 2025 Colorectal Cancer Screening Discontinued FIT/FOBT Q 1 year Discontinued 03/02/2001 COLORECTAL SCREENING Discontinued FIT-DNA Q 3 years Discontinued Flex Sig/CT Colonography Q 5 years Discontinued Care Teams Residential Roofer Helper Relationship Specialty Start Date End Date Shahnaz Miller MD [address] [place] [id number] PCP - General 03/02/01
--- OUTSIDE RECORDS SUMMARY | 2025-05-29 20:14 | XMS_ITS | Clinical Summary ---
Author Organization [facility] Address [address] [address] Care Team Providers Care Baffle Mounter Name Role Phone Wander Harris MD Primary Care Provider [phone] Veto Costa MD Unavailable [phone] Allergies No known active allergies Medications metoprolol XL (TOPROL-XL) 50 mg 24 hr tablet Active estrogens, conjugated, (PREMARIN) 0.625 mg tablet Take 1 tablet (0.625 mg total) by mouth every other day Active atorvastatin (LIPITOR) 10 mg tablet 9 Active oxybutynin XL (DITROPAN-XL) 5 mg 24 hr tablet oxybutynin chloride ER 5 mg tablet,extended release 24 hr Active ergocalciferol (VITAMIN D) 50,000 unit capsule ergocalciferol (vitamin D2) 1,250 mcg (50,000 unit) capsule Take 1 capsule every week by oral route. Active cycloSPORINE (Restasis) 0.05 % ophthalmic emulsion Restasis MultiDose 0.05 % eye drops Active azithromycin (ZITHROMAX) 250 mg tablet azithromycin 250 mg tablet Active ALPRAZolam (XANAX) 0.25 mg tablet Take 1 tablet (0.25 mg total) by mouth 4 (four) times a day 1 Active albuterol HFA (PROVENTIL HFA,VENTOLIN HFA,PROAIR HFA) 90 mcg/actuation inhaler Ventolin HFA 90 mcg/actuation aerosol inhaler 8 Active Premarin 0.3 mg tablet 1 Active lisinopriL (PRINIVIL,ZEST RIL) 10 mg tablet Take 1 tablet (10 mg total) by mouth daily 3 Active omega-3 fatty acids (LOVAZA) 1 gram capsule Take 2 capsules (2 g total) by mouth 2 (two) times a day 4 Active hydrOXYzine (ATARAX) 25 mg tablet Take 1 tablet twice a day by oral route as needed. Active ezetimibe (ZETIA) 10 mg tablet Take 1 tablet (10 mg total) by mouth daily 4 Active clopidogreL (PLAVIX) 75 mg tablet Take 1 tablet (75 mg total) by mouth daily 4 Active cilostazoL (PLETAL) 100 mg tablet Take 1 tablet (100 mg total) by mouth 2 (two) times a day 4 Active aspirin 81 mg enteric coated tablet Take 1 tablet (81 mg total) by mouth daily 4 Active lisinopriL (PRINIVIL,ZEST RIL) 20 mg tablet 5 Active atorvastatin (LIPITOR) 40 mg tablet 5 Active varenicline tartrate (CHANTIX) 1 mg tablet Take 1 tablet (1 mg total) by mouth 2 (two) times a day 5 Active Xarelto 2.5 mg tablet 5 Active nicotine polacrilex (NICORETTE) 2 mg gum 1, Oral, daily, 0 4 Active acetaminophen (TylenoL) 325 mg tablet 2 tablets (650 mg total) 4 Active Active Problems Problem Noted Date Diagnosed Date Cough 09/07/2021 Anxiety 04/02/2021 Benign essential hypertension 04/02/2021 Vitamin D deficiency 04/02/2021 Pure hypercholesterolemia 04/02/2021 Facial scar 03/10/2018 Impacted cerumen, bilateral 03/10/2018 Nephrolithiasis 09/02/2016 Female genital prolapse 04/15/2016 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 Sebaceous cyst 09/03/2015 Encounters Date Type Department Care Team Description 04/25/2025 11:00 AM CDT Office Visit [facility] Medicine ENT [address] [facility] [address], [address] [place] [address] Deandra Munoz PA Impacted cerumen, bilateral (Primary Dx); Granular cell tumor from Last 3 Months Immunizations Immunization Administration Dates Next Due Influenza, Trivalent, IM (MDV) 07/24/2014,2012 Surgical History Surgery Date Site/Laterality Comments HYSTERECTOMY Total Hysterectomy - (Added by TW Conv) ID EXC B9 LES MRGN XCP SK TG F/E/E/N/L/M 1.1-2.0CM Excision Of Lesion Face Benign 1.1 To 2cm - (Added by TW Conv) ID ADJNT TIS TRNSFR/REARGMT ANY AREA 30.1-60 SQ CM Adjacent Tissue Transfer - Chin; 30.1 To 60.0 Sq Cm - (Added by TW Conv) ID REPAIR INTERMEDIATE F/E/E/N/L&/MUC 5.1-7.5 CM Layer Closure Of Wound Face 5.1 To 7.5 Cm - (Added by TW Conv) Medical History Medical History Date Comments Personal history of other me ntal and behavioral disorders History of anxiety - (Added by TW Conv) Benign neoplasm of connectiv e and other soft tissue, unspecified Granular cell tumor - (Added by TW Conv) Family History Medical History Relation Name Comments Heart attack Father Family history of myocardial infarction - (Added by TW Conv) Heart disease Father Family history of cardiac disorder - (Added by TW Conv) Colonic polyp Mother Family history of colonic polyps - (Added by TW Conv) Hypertension Mother Family history of hypertension - (Added by TW Conv) Relation Name Status Comments Father Mother Social History Tobacco Use Types Packs/Day Years Used Date Smoking Tobacco: Former Smokeless Tobacco: Never Tobacco Cessation:Counseling Given: Not Answered AUDIT-C Answer Date Recorded Q1: How often do you have a drink containing alc ohol? 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 Gender Identity Not on file Sexual Orientation Not on file Obstetrics History Last Filed Vital Signs Vital Sign Reading Time Taken Comments Blood Pressure 144/63 07/08/2016 2:37 PM INFRASTRUCTURE DIRECTOR Pulse 59 07/08/2016 2:37 PM INFRASTRUCTURE DIRECTOR Temperature - - Respiratory Rate - - Oxygen Saturation 95% 06/18/2016 12:22 PM INFRASTRUCTURE DIRECTOR Inhaled Oxygen Concentration - - Weight 68.2 kg (150 lb 6.4 oz) 04/25/2025 11:02 AM CDT Height 160 cm (5' 3) 04/25/2025 11:02 AM CDT Body Mass Index 26.64 04/25/2025 11:02 AM CDT Plan of Treatment Health Maintenance Due Date Last Done Comments Depression Screening 1945 Fall Risk Assessment 1945 Hepatitis C Screening 1945 Osteoporosis Screening-Bone Density Scan 1945 DTaP/Tdap/Td Vaccine (1 - Tdap) 1958 Hepatitis B Screening 1965 Pneumococcal vaccine 65+ (1 of 1 - PCV) 1997 Zoster Vaccine (1 of 2) 1997 Well Visit 65+ 2012 Influenza Vaccine (#1) 2025 , 07/24/2014, 06/14/2013 Insurance MEDICARE [facility] BLUE CROSS MEDICARE SUPPLEMENT MEDICARE [facility] Care Teams Baffle Mounter Relationship Specialty Start Date End Date Wander Harris MD PCP - General 09/20/16 Veto Costa MD [address] [place] [address] Consulting Physician Otolaryngology 05/01/20
--- OUTSIDE RECORDS SUMMARY | 2025-05-29 20:14 | XMS_ITS | Data Portability ---
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 Peripheral arterial occlusive disease secondary preventative measures for vascular disease discussed. Blood work has been ordered for some of her symptoms down her right leg they almost sound radicular we will try Medrol Dosepak. [email or web address] Not available 07/07/2024 21:15:10 10/02/2024 10/02/2024 Congratulated he r on taking her generic Chantix refuses flu shot today and Tdap but she will take pneumonia shot. Medications we will continue CBC and a CMP follow up with me in 4 months [email or web address] Not available 10/04/2024 13:39:25 01/22/2025 01/22/2025 Blood work has b connor ordered Chantix has been started she used it before she understands the side effects she will follow up with me in 3 months' time medicines have been discussed disease processes discussed. Refuses Tdap refuses any screenings or immunizations today [email or web address] Not available 01/24/2025 13:18:13 05/01/2025 05/01/2025 We will continue current therapy blood work has been ordered she will continue her structured walking program with her peripheral interventionalists medications we will continue all questions have been answered follow up 4 months [email or web address] Not available 05/01/2025 13:47:22 Plan of Treatment Reminders Order Date Submit Date Provider Last Modified By Organization Details Last Modified Time Details Appointments ANY 15 2025 11:00A M Chencho Harris MD Not available Not available Not available Lab CBC w/ auto diff 2024 025 GABRIELLA [facility] (Centralized Electronic Ordering - All Locations), Patient Can Go To The Location Of Their Choice, 05/02/2025 11:18:58 lipid panel, serum 2024 025 GABRIELLA [facility] (Centralized Electronic Ordering - All Locations), Patient Can Go To The Location Of Their Choice, 05/02/2025 11:18:56 CMP, serum or plasma 2024 025 GABRIELLA [facility] (Centralized Electronic Ordering - All Locations), Patient Can Go To The Location Of Their Choice, 05/02/2025 11:18:57 lipid panel, serum 2024 025 [facility], [address], [place], [address], 01/24/2025 06:17:44 CBC w/ auto diff 2024 025 GABRIELLA [facility], [address], [place], [address], 01/24/2025 06:17:46 CMP, serum or plasma 2024 025 [facility], [address], [place], [address], 01/24/2025 06:17:45 CMP, serum or plasma 2024 025 GABRIELLA [facility], [address], [place], [address], 10/03/2024 08:27:34 CBC w/ auto diff 2024 025 BAYLIS [facility], [address], [place], [address], 10/03/2024 08:27:35 vitamin B12 + folate, serum or blood 2023 024 G[facility]ELLA [facility], [address], [address], [place], [address], 07/04/2024 13:12:13 CBC w/ auto diff 2023 024 G[facility]RIELLA [facility], [address], [address], [place], [address], 07/04/2024 13:12:16 CMP, serum or plasma 2023 024 GABRIELLA [facility], [address], [address], [place], [address], 07/04/2024 13:12:12 lipid panel, serum 2023 024 GABRIELLA [facility], [address], [address], [place], [address], 07/04/2024 13:12:09 TSH, ultra-sen sitive, serum 2023 024 GABRIELLA [facility], [address], [address], [place], [address], 07/04/2024 13:12:15 T3, free, serum or plasma 2023 024 G[facility]RIELLA [facility], [address], [address], [place], [address], 07/04/2024 13:12:17 unlisted lab - T4, free 2023 BAYLIS [facility], [address], [address], [address], 07/04/2024 13:12:10 Referral physical therapist referral 2023 024 [facility] [place], [address] [facility], [place], [address], 08/17/2024 14:06:21 Procedures None recorded. Surgeries None recorded. Imaging None recorded. Medication Orders Chantix Continuin g Month Box 1 mg tablet [address] [id number], [address], [place], [place], [id number], 01/22/2025 13:21:01 Medrol (Ethan) 4 mg tablets in a dose pack 2023 025 [facility] #[id number], [address], [place], [place], [id number], 01/22/2025 12:01:17 Chantix Starting Month Box 0.5 mg (11)-1 mg (42) tablets in dose pack 2023 025 [id number], [address], [place], [place], [phone], 01/22/2025 12:03:00 Chantix Continuin g Month Box 1 mg tablet [address] [facility] #[id number], [address], [place], [place], [phone], 07/03/2024 13:06:38 Patient TargetsNo targets recorded. Patient Instructions Encounter Date Encounter Id Patient Instructions Last Modified By Organization Details Last Modified Time 10/02/2024 [id number] A healthy lifestyle: care instructions [email or web address] Not available 10/02/2024 13:43:40 01/22/2025 [id number] A healthy lifestyle: care instructions [email or web address] Not available 01/22/2025 13:21:01 05/01/2025 [id number] A healthy lifestyle: care instructions [email or web address] Not available 05/01/2025 13:44:29 Reason for Referral Physical Therapist Referral for Spinal stenosis of lumbar region Referring Physician: Chencho Harris, Internal Medicine, Encounter Date: 07/03/2024 Results Created Date Observation Date Name Description Value Unit Range Abnormal Flag Note LastModifiedBy Organization Detail LastModifiedTime 07/03/2007/04/2024 LIPID PANEL cholesterol, total 136 mg/dL 100-19 9 Not Available [facility] ([facility]) [address] [place], [address], 07/04/2024 13:12:09 07/03/2007/04/2024 LIPID PANEL triglyceride s 239 mg/dL 0-149 above high normal Not Available [facility] ([facility]) [address] [place], [address], 07/04/2024 13:12:09 07/03/2007/04/2024 LIPID PANEL HDL cholesterol 44 mg/dL >39 Not Available [facility] ([facility]) [address] [place], [address], 07/04/2024 13:12:09 07/03/2007/04/2024 LIPID PANEL VLDL cholesterol nicci 38 mg/dL 5-40 Not Available [facility] ([facility]) [address] [place], [address], 07/04/2024 13:12:09 07/03/2007/04/2024 LIPID PANEL LDL chol calc ([facility]) 54 mg/dL 0-99 Not Available [facility] ([facility]) [address] [place], [address], 07/04/2024 13:12:09 07/03/20 24 07/04/2024 T4, FREE T4,free(dire ct) 1.25 NG/dL 0.82-1 .77 Not Available [facility] ([facility]) [address] [facility], [place], [address], 07/04/2024 13:12:10 07/03/20 24 07/04/2024 COMP. METAB OLIC PANEL (14) glucose 104 mg/dL 70-99 above high normal Not Available [facility] ([facility]) [address] [place], [address], 07/04/2024 13:12:12 07/03/20 24 07/04/2024 COMP. METAB OLIC PANEL (14) BUN 28 mg/dL 8-27 above high normal Not Available [facility] ([facility]) [address] [place], [address], 07/04/2024 13:12:12 07/03/20 24 07/04/2024 COMP. METAB OLIC PANEL (14) creatinine 1.45 mg/dL 0.57-1 .00 above high normal Not Available [facility] ([facility]) [address] [place], [address], 07/04/2024 13:12:12 07/03/20 24 07/04/2024 COMP. METAB OLIC PANEL (14) eGFR 37 mL/mi n/1.7 3 >59 below low normal Not Available [facility] ([facility]) [address] [place], [address], 07/04/2024 13:12:12 07/03/20 24 07/04/2024 COMP. METAB OLIC PANEL (14) BUN/creatini ne ratio 19 -28 Not Available [facility] ([facility]) [address] [place], [address], 07/04/2024 13:12:12 07/03/20 24 07/04/2024 COMP. METAB OLIC PANEL (14) sodium 140 mmol/ L 134-14 4 Not Available [facility] ([facility]) [address] [place], [address], 07/04/2024 13:12:12 07/03/20 24 07/04/2024 COMP. METAB OLIC PANEL (14) potassium 5.0 mmol/ L 3.5-5. 2 Not Available [facility] ([facility]) [address] [place], [address], 07/04/2024 13:12:12 07/03/2007/04/2024 COMP. METAB OLIC PANEL (14) chloride 105 mmol/ L 96-106 Not Available [facility] ([facility]) [address] [place], [address], 07/04/2024 13:12:12 07/03/20 24 07/04/2024 COMP. METAB OLIC PANEL (14) carbon dioxide, total 21 mmol/ L 20-29 Not Available [facility] ([facility]) [address] [place], [address], 07/04/2024 13:12:12 07/03/20 24 07/04/2024 COMP. METAB OLIC PANEL (14) calcium 9.7 mg/dL 8.7-10 .3 Not Available [facility] ([facility]) [address] [place], [address], 07/04/2024 13:12:12 07/03/20 24 07/04/2024 COMP. METAB OLIC PANEL (14) protein, total 6.9 g/dL 6.0-8. 5 Not Available [facility] ([facility]) [address] [place], [address], 07/04/2024 13:12:12 07/03/20 24 07/04/2024 COMP. METAB OLIC PANEL (14) albumin 4.7 g/dL 3.8-4. 8 Not Available [facility] ([facility]) [address] [place], [address], 07/04/2024 13:12:12 07/03/20 24 07/04/2024 COMP. METAB OLIC PANEL (14) globulin, total 2.2 g/dL 1.5-4. 5 Not Available [facility] ([facility]) [address] [place], [address], 07/04/2024 13:12:12 07/03/20 24 07/04/2024 COMP. METAB OLIC PANEL (14) bilirubin, total 0.4 mg/dL 0.0-1. 2 Not Available [facility] ([facility]) [address] [facility] [place], [address], 07/04/2024 13:12:12 07/03/20 24 07/04/2024 COMP. METAB OLIC PANEL (14) alkaline phosphatase 86 IU/L 44-121 Not Available [facility] [address] [facility] [place], [address], 07/04/2024 13:12:12 07/03/20 24 07/04/2024 COMP. METAB OLIC PANEL (14) AST (SGOT) 13 IU/L 0-40 Not Available [facility] ([facility]) [address] [facility] [place], [address], 07/04/2024 13:12:12 07/03/20 24 07/04/2024 COMP. METAB OLIC PANEL (14) ALT (SGPT) 9 IU/L 0-32 Not Available [facility] ([facility]) [address] [facility] [place], [address], 07/04/2024 13:12:12 07/03/20 24 07/04/2024 VITAM IN B12 AND FOLAT E vitamin B12 352 pg/mL 232-12 45 Not Available [facility] ([facility]) [address] [place], [address], 07/04/2024 13:12:13 07/03/20 24 07/04/2024 VITAM IN B12 AND FOLAT E folate (folic acid), serum 11.9 NG/mL >3.0 A serum folat e nikos ntrat ion of less than 3.1 ng/mL is consi dered to repre sent clini nicci defic iency . Not Available [facility] ([facility]) [address] [facility], [place], [address], 07/04/2024 13:12:13 07/03/20 24 07/04/2024 TSH TSH 0.934 uIU/m L 0.450- 4.500 Not Available [facility] ([facility]) [address] [facility], [place], [address], 07/04/2024 13:12:14 07/03/20 24 07/04/2024 CBC WITH DIFFE RENTI AL/PL ATELE T WBC 9.0 x10e3 /uL 3.4-10 .8 Eff ectiv e Decem garrick 20[address] [place] [id number] 5 WBC will be made* * non-o rdera ble as a stand -regan e order code. Not Available [facility] ([facility]) [address] [facility], [place], [address], 07/04/2024 13:12:16 07/03/20 24 07/04/2024 CBC WITH DIFFE RENTI AL/PL ATELE T RBC 4.05 x10e6 /uL 3.77-5 .28 Not Available [facility] ([facility]) [address] [facility], [place], [address], 07/04/2024 13:12:16 07/03/20 24 07/04/2024 CBC WITH DIFFE RENTI AL/PL ATELE T hemoglobin 12.2 g/dL 11.1-1 5.9 Not Available [facility] ([facility]) [address] [facility], [place], [address], 07/04/2024 13:12:16 07/03/20 24 07/04/2024 CBC WITH DIFFE RENTI AL/PL ATELE T hematocrit 37.5 % 34.0-4 6.6 Not Available [facility] ([facility]) [address] [facility], [place], [address], 07/04/2024 13:12:16 07/03/20 24 07/04/2024 CBC WITH DIFFE RENTI AL/PL ATELE T MCV 93 fL 79-97 Not Available [facility] ([facility]) [address] [facility], [place], [address], 07/04/2024 13:12:16 07/03/20 24 07/04/2024 CBC WITH DIFFE RENTI AL/PL ATELE T MCH 30.1 pg 26.6-3 3.0 Not Available [facility] ([facility]) [address] [facility], [place], [address], 07/04/2024 13:12:16 07/03/20 24 07/04/2024 CBC WITH DIFFE RENTI AL/PL ATELE T MCHC 32.5 g/dL 31.5-3 5.7 Not Available [facility] ([facility]) [address] [facility], [place], [address], 07/04/2024 13:12:16 07/03/20 24 07/04/2024 CBC WITH DIFFE RENTI AL/PL ATELE T RDW 12.9 % 11.7-1 5.4 Not Available [facility] ([facility]) [address] [facility], [place], [address], 07/04/2024 13:12:16 07/03/20 24 07/04/2024 CBC WITH DIFFE RENTI AL/PL ATELE T platelets 403 x10e3 /uL 150-45 0 Not Available [facility] ([facility]) [address] [facility], [place], [address], 07/04/2024 13:12:16 07/03/20 24 07/04/2024 CBC WITH DIFFE RENTI AL/PL ATELE T neutrophils 65 % notest ab. Not Available [facility] ([facility]) [address] [facility], [place], [address], 07/04/2024 13:12:16 07/03/20 24 07/04/2024 CBC WITH DIFFE RENTI AL/PL ATELE T lymphs 25 % notest ab. Not Available [facility] ([facility]) [address] [facility], [place], [address], 07/04/2024 13:12:16 07/03/20 24 07/04/2024 CBC WITH DIFFE RENTI AL/PL ATELE T monocytes 7 % notest ab. Not Available [facility] ([facility]) [address] [facility], [place], [address], 07/04/2024 13:12:16 07/03/20 24 07/04/2024 CBC WITH DIFFE RENTI AL/PL ATELE T eos 2 % notest ab. Not Available [facility] ([facility]) [address] [facility], [place], [address], 07/04/2024 13:12:16 07/03/20 24 07/04/2024 CBC WITH DIFFE RENTI AL/PL ATELE T basos 1 % notest ab. Not Available [facility] ([facility]) [address] [facility], [place], [address], 07/04/2024 13:12:16 07/03/20 24 07/04/2024 CBC WITH DIFFE RENTI AL/PL ATELE T neutrophils (absolute) 5.8 x10e3 /uL 1.4-7. 0 Not Available [facility] ([facility]) [address] [facility], [place], [address], 07/04/2024 13:12:16 07/03/20 24 07/04/2024 CBC WITH DIFFE RENTI AL/PL ATELE T lymphs (absolute) 2.3 x10e3 /uL 0.7-3. 1 Not Available [facility] ([facility]) [address] [place], [address], 07/04/2024 13:12:16 07/03/20 24 07/04/2024 CBC WITH DIFFE RENTI AL/PL ATELE T monocytes(ab solute) 0.7 x10e3 /uL 0.1-0. 9 Not Available [facility] ([facility]) [address] [facility], [place], [address], 07/04/2024 13:12:16 07/03/20 24 07/04/2024 CBC WITH DIFFE RENTI AL/PL ATELE T eos (absolute) 0.2 x10e3 /uL 0.0-0. 4 Not Available [facility] ([facility]) [address] [facility], [place], [address], 07/04/2024 13:12:16 07/03/20 24 07/04/2024 CBC WITH DIFFE RENTI AL/PL ATELE T baso (absolute) 0.1 x10e3 /uL 0.0-0. 2 Not Available [facility] ([facility]) [address] [place], [address], 07/04/2024 13:12:16 07/03/20 24 07/04/2024 CBC WITH DIFFE RENTI AL/PL ATELE T immature granulocytes 0 % notest ab. Not Available [facility] ([facility]) [address] [place], [address], 07/04/2024 13:12:16 07/03/20 24 07/04/2024 CBC WITH DIFFE RENTI AL/PL ATELE T immature grans (abs) 0.0 x10e3 /uL 0.0-0. 1 Not Available [facility] ([facility]) [address] [place], [address], 07/04/2024 13:12:16 07/03/20 24 07/04/2024 TRIIO DOTHY JORDYN E (T3), FREE triiodothyro nine (T3), free 2.8 pg/mL 2.0-4. 4 Not Available [facility] ([facility]) [address] [place], [address], 07/04/2024 13:12:17 08/06/20 24 08/07/2024 BASIC METAB OLIC PANEL (8) glucose 110 mg/dL 70-99 above high normal Not Available [facility] ([facility]) [address] [place], [address], 08/07/2024 07:12:56 08/06/20 24 08/07/2024 BASIC METAB OLIC PANEL (8) BUN 21 mg/dL 8-27 Not Available [facility] ([facility]) [address] [facility], [place], [address], 08/07/2024 07:12:56 08/06/20 24 08/07/2024 BASIC METAB OLIC PANEL (8) creatinine 1.35 mg/dL 0.57-1 .00 above high normal Not Available [facility] ([facility]) [address] [facility], [place], [address], 08/07/2024 07:12:56 08/06/20 24 08/07/2024 BASIC METAB OLIC PANEL (8) eGFR 40 mL/mi n/1.7 3 >59 below low normal Not Available [facility] ([facility]) [address] [place], [address], 08/07/2024 07:12:56 08/06/20 24 08/07/2024 BASIC METAB OLIC PANEL (8) BUN/creatini ne ratio 16 12-28 Not Available [facility] ([facility]) [address] [place], [address], 08/07/2024 07:12:56 08/06/20 24 08/07/2024 BASIC METAB OLIC PANEL (8) sodium 139 mmol/ L 134-14 4 Not Available [facility] ([facility]) [address] [place], [address], 08/07/2024 07:12:56 08/06/20 24 08/07/2024 BASIC METAB OLIC PANEL (8) potassium 5.5 mmol/ L 3.5-5. 2 above high normal Not Available [facility] ([facility]) [address] [place], [address], 08/07/2024 07:12:56 08/06/20 24 08/07/2024 BASIC METAB OLIC PANEL (8) chloride 105 mmol/ L 96-106 Not Available [facility] ([facility]) [address] [place], [address], 08/07/2024 07:12:56 08/06/20 24 08/07/2024 BASIC METAB OLIC PANEL (8) carbon dioxide, total 20 mmol/ L 20-29 Not Available [facility] ([facility]) [address] [place], [address], 08/07/2024 07:12:56 08/06/20 24 08/07/2024 BASIC METAB OLIC PANEL (8) calcium 9.5 mg/dL 8.7-10 .3 Not Available [facility] ([facility]) [address] [place], [address], 08/07/2024 07:12:56 10/02/19 25 10/03/2024 COMP. METAB OLIC PANEL (14) glucose 105 mg/dL 70-99 above high normal Not Available [facility] ([facility]) [address] [place], [address], 10/03/2024 08:27:34 10/02/19 25 10/03/2024 COMP. METAB OLIC PANEL (14) BUN 24 mg/dL 8-27 Not Available [facility] ([facility]) [address] [place], [address], 10/03/2024 08:27:34 10/02/19 25 10/03/2024 COMP. METAB OLIC PANEL (14) creatinine 1.26 mg/dL 0.57-1 .00 above high normal Not Available [facility] ([facility]) [address] [place], [address], 10/03/2024 08:27:34 10/02/19 25 10/03/2024 COMP. METAB OLIC PANEL (14) eGFR 44 mL/mi n/1.7 3 >59 below low normal Not Available [facility] ([facility]) [address] [place], [address], 10/03/2024 08:27:34 10/02/19 25 10/03/2024 COMP. METAB OLIC PANEL (14) BUN/creatini ne ratio 19 12-28 Not Available [facility] ([facility]) [address] [place], [address], 10/03/2024 08:27:34 10/02/19 25 10/03/2024 COMP. METAB OLIC PANEL (14) sodium 140 mmol/ L 134-14 4 Not Available [facility] ([facility]) [address] [place], [address], 10/03/2024 08:27:34 10/02/19 25 10/03/2024 COMP. METAB OLIC PANEL (14) potassium 4.9 mmol/ L 3.5-5. 2 Not Available [facility] ([facility]) [address] [place], [address], 10/03/2024 08:27:34 10/02/19 25 10/03/2024 COMP. METAB OLIC PANEL (14) chloride 102 mmol/ L 96-106 Not Available [facility] ([facility]) [address] [place], [address], 10/03/2024 08:27:34 10/02/19 25 10/03/2024 COMP. METAB OLIC PANEL (14) carbon dioxide, total 22 mmol/ L 20- Not Available [facility] ([facility]) [address] [facility] [place], [address], 10/03/2024 08:27:34 10/02/1910/03/2024 COMP. METAB OLIC PANEL (14) calcium 9.5 mg/dL 8.7-10 .3 Not Available [facility] ([facility]) [address] [facility] [place], [address], 10/03/2024 08:27:34 10/02/19 25 10/03/2024 COMP. METAB OLIC PANEL (14) protein, total 6.5 g/dL 6.0-8. 5 Not Available [facility] ([facility]) [address] [place], [address], 10/03/2024 08:27:34 10/02/19 25 10/03/2024 COMP. METAB OLIC PANEL (14) albumin 4.4 g/dL 3.8-4. 8 Not Available [facility] ([facility]) [address] [place], [address], 10/03/2024 08:27:34 10/02/1910/03/2024 COMP. METAB OLIC PANEL (14) globulin, total 2.1 g/dL 1.5-4. 5 Not Available [facility] ([facility]) [address] [place], [address], 10/03/2024 08:27:34 10/02/19 25 10/03/2024 COMP. METAB OLIC PANEL (14) bilirubin, total 0.6 mg/dL 0.0-1. 2 Not Available [facility] ([facility]) [address] [place], [address], 10/03/2024 08:27:34 10/02/19 25 10/03/2024 COMP. METAB OLIC PANEL (14) alkaline phosphatase 78 IU/L 44-121 Not Available [facility] ([facility]) [address] [facility], [place], [address], 10/03/2024 08:27:34 10/02/19 25 10/03/2024 COMP. METAB OLIC PANEL (14) AST (SGOT) 11 IU/L 0-40 Not Available [facility] ([facility]) [address] [facility], [place], [address], 10/03/2024 08:27:34 10/02/19 25 10/03/2024 COMP. METAB OLIC PANEL (14) ALT (SGPT) 11 IU/L 0-32 Not Available [facility] ([facility]) [address] [facility], [place], [address], 10/03/2024 08:27:34 10/02/19 25 10/03/2024 CBC WITH DIFFE RENTI AL/PL ATELE T WBC 8.9 x10e3 /uL 3.4-10 .8 Not Available [facility] ([facility]) [address] [facility], [place], [address], 10/03/2024 08:27:35 10/02/19 25 10/03/2024 CBC WITH DIFFE RENTI AL/PL ATELE T RBC 4.02 x10e6 /uL 3.77-5 .28 Not Available [facility] ([facility]) [address] [facility], [place], [address], 10/03/2024 08:27:35 10/02/1910/03/2024 CBC WITH DIFFE RENTI AL/PL ATELE T hemoglobin 12.1 g/dL 11.1-1 5.9 Not Available [facility] ([facility]) [address] [facility], [place], [address], 10/03/2024 08:27:35 10/02/1910/03/2024 CBC WITH DIFFE RENTI AL/PL ATELE T hematocrit 36.2 % 34.0-4 6.6 Not Available [facility] ([facility]) [address] [facility], [place], [address], 10/03/2024 08:27:35 10/02/1910/03/2024 CBC WITH DIFFE RENTI AL/PL ATELE T MCV 90 fL 79-97 Not Available [facility] ([facility]) [address] [facility], [place], [address], 10/03/2024 08:27:35 10/02/1910/03/2024 CBC WITH DIFFE RENTI AL/PL ATELE T MCH 30.1 pg 26.6-3 3.0 Not Available [facility] ([facility]) [address] [facility], [place], [address], 10/03/2024 08:27:35 10/02/1910/03/2024 CBC WITH DIFFE RENTI AL/PL ATELE T MCHC 33.4 g/dL 31.5-3 5.7 Not Available [facility] ([facility]) [address] [facility], [place], [address], 10/03/2024 08:27:35 10/02/1910/03/2024 CBC WITH DIFFE RENTI AL/PL ATELE T RDW 13.0 % 11.7-1 5.4 Not Available [facility] ([facility]) [address] [place], [address], 10/03/2024 08:27:35 10/02/1910/03/2024 CBC WITH DIFFE RENTI AL/PL ATELE T platelets 357 x10e3 /uL 150-45 0 Not Available [facility] ([facility]) [address] [place], [address], 10/03/2024 08:27:35 10/02/19 25 10/03/2024 CBC WITH DIFFE RENTI AL/PL ATELE T neutrophils 66 % notest ab. Not Available [facility] ([facility]) [address] [facility], [place], [address], 10/03/2024 08:27:35 10/02/19 25 10/03/2024 CBC WITH DIFFE RENTI AL/PL ATELE T lymphs 23 % notest ab. Not Available [facility] ([facility]) [address] [facility], [place], [address], 10/03/2024 08:27:35 10/02/1910/03/2024 CBC WITH DIFFE RENTI AL/PL ATELE T monocytes 7 % notest ab. Not Available [facility] ([facility]) [address] [facility], [place], [address], 10/03/2024 08:27:35 10/02/1910/03/2024 CBC WITH DIFFE RENTI AL/PL ATELE T eos 3 % notest ab. Not Available [facility] ([facility]) [address] [place], [address], 10/03/2024 08:27:35 10/02/1910/03/2024 CBC WITH DIFFE RENTI AL/PL ATELE T basos 1 % notest ab. Not Available [facility] ([facility]) [address] [facility], [place], [address], 10/03/2024 08:27:35 10/02/1910/03/2024 CBC WITH DIFFE RENTI AL/PL ATELE T neutrophils (absolute) 5.9 x10e3 /uL 1.4-7. 0 Not Available [facility] ([facility]) [address] [facility], [place], [address], 10/03/2024 08:27:35 10/02/19 25 10/03/2024 CBC WITH DIFFE RENTI AL/PL ATELE T lymphs (absolute) 2.1 x10e3 /uL 0.7-3. 1 Not Available [facility] ([facility]) [address] [facility], [place], [address], 10/03/2024 08:27:35 10/02/1910/03/2024 CBC WITH DIFFE RENTI AL/PL ATELE T monocytes(ab solute) 0.6 x10e3 /uL 0.1-0. 9 Not Available [facility] ([facility]) [address] [facility], [place], [address], 10/03/2024 08:27:35 10/02/1910/03/2024 CBC WITH DIFFE RENTI AL/PL ATELE T eos (absolute) 0.2 x10e3 /uL 0.0-0. 4 Not Available [facility] ([facility]) [address] [facility], [place], [address], 10/03/2024 08:27:35 10/02/1910/03/2024 CBC WITH DIFFE RENTI AL/PL ATELE T baso (absolute) 0.1 x10e3 /uL 0.0-0. 2 Not Available [facility] ([facility]) [address] [facility], [place], [address], 10/03/2024 08:27:35 10/02/1910/03/2024 CBC WITH DIFFE RENTI AL/PL ATELE T immature granulocytes 0 % notest ab. Not Available [facility] ([facility]) [address] [facility], [place], [address], 10/03/2024 08:27:35 10/02/1910/03/2024 CBC WITH DIFFE RENTI AL/PL ATELE T immature grans (abs) 0.0 x10e3 /uL 0.0-0. 1 Not Available [facility] ([facility]) [address] [place], [address], 10/03/2024 08:27:35 01/23/20 01/24/2025 LIPID PANEL cholesterol, total 140 mg/dL 100-19 9 Not Available [facility] ([facility]) [address] [place], [address], 01/24/2025 06:17:44 01/23/20 25 01/24/2025 LIPID PANEL triglyceride s 277 mg/dL 0-149 above high normal Not Available [facility] ([facility]) [address] [place], [address], 01/24/2025 06:17:44 01/23/20 25 01/24/2025 LIPID PANEL HDL cholesterol 47 mg/dL >39 Not Available [facility] ([facility]) [address] [place], [address], 01/24/2025 06:17:44 01/23/20 25 01/24/2025 LIPID PANEL VLDL cholesterol nicci 43 mg/dL 5-40 above high normal Not Available [facility] ([facility]) [address] [place], [address], 01/24/2025 06:17:44 01/23/20 25 01/24/2025 LIPID PANEL LDL chol calc ([facility]) 50 mg/dL 0-99 Not Available [facility] ([facility]) [address] [place], [address], 01/24/2025 06:17:44 01/23/20 25 01/23/2025 COMP. METAB OLIC PANEL (14) sodium 138 mmol/ L 134-14 4 Not Available [facility] ([facility]) [address] [place], [address], 01/24/2025 06:17:45 01/23/20 25 01/23/2025 COMP. METAB OLIC PANEL (14) potassium 4.9 mmol/ L 3.5-5. 2 Not Available [facility] ([facility]) [address] [place], [address], 01/24/2025 06:17:45 01/23/20 25 01/23/2025 COMP. METAB OLIC PANEL (14) chloride 102 mmol/ L 96-106 Not Available [facility] ([facility]) [address] [place], [address], 01/24/2025 06:17:45 01/23/20 25 01/24/2025 COMP. METAB OLIC PANEL (14) glucose 109 mg/dL 70-99 above high normal Not Available [facility] ([facility]) [address] [place], [address], 01/24/2025 06:17:45 01/23/20 25 01/24/2025 COMP. METAB OLIC PANEL (14) BUN 23 mg/dL 8-27 Not Available [facility] ([facility]) [address] [place], [address], 01/24/2025 06:17:45 01/23/20 25 01/24/2025 COMP. METAB OLIC PANEL (14) creatinine 1.38 mg/dL 0.57-1 .00 above high normal Not Available [facility] ([facility]) [address] [place], [address], 01/24/2025 06:17:45 01/23/20 25 01/24/2025 COMP. METAB OLIC PANEL (14) eGFR 39 mL/mi n/1.7 3 >59 below low normal Not Available [facility] ([facility]) [address] [place], [address], 01/24/2025 06:17:45 01/23/20 25 01/24/2025 COMP. METAB OLIC PANEL (14) BUN/creatini ne ratio 17 - Not Available [facility] ([facility]) [address] [place], [address], 01/24/2025 06:17:45 01/23/20 25 01/24/2025 COMP. METAB OLIC PANEL (14) carbon dioxide, total 19 mmol/ L 20-29 below low normal Not Available [facility] ([facility]) [address] [place], [address], 01/24/2025 06:17:45 01/23/20 25 01/24/2025 COMP. METAB OLIC PANEL (14) calcium 9.8 mg/dL 8.7-10 .3 Not Available [facility] ([facility]) [address] [place], [address], 01/24/2025 06:17:45 01/23/20 25 01/24/2025 COMP. METAB OLIC PANEL (14) protein, total 6.6 g/dL 6.0-8. 5 Not Available [facility] ([facility]) [address] [place], [address], 01/24/2025 06:17:45 01/23/20 25 01/24/2025 COMP. METAB OLIC PANEL (14) albumin 4.3 g/dL 3.8-4. 8 Not Available [facility] ([facility]) [address] [place], [address], 01/24/2025 06:17:45 01/23/20 25 01/24/2025 COMP. METAB OLIC PANEL (14) globulin, total 2.3 g/dL 1.5-4. 5 Not Available [facility] ([facility]) [address] [place], [address], 01/24/2025 06:17:45 01/23/20 25 01/24/2025 COMP. METAB OLIC PANEL (14) bilirubin, total 0.6 mg/dL 0.0-1. 2 Not Available [facility] ([facility]) [address] [place], [address], 01/24/2025 06:17:45 01/23/20 25 01/24/2025 COMP. METAB OLIC PANEL (14) alkaline phosphatase 74 IU/L 44-121 Not Available [facility] ([facility]) [address] [place], [address], 01/24/2025 06:17:45 01/23/20 25 01/24/2025 COMP. METAB OLIC PANEL (14) AST (SGOT) 21 IU/L 0-40 Not Available [facility] ([facility]) [address] [facility], [place], [address], 01/24/2025 06:17:45 01/23/20 25 01/24/2025 COMP. METAB OLIC PANEL (14) ALT (SGPT) 17 IU/L 0-32 Not Available [facility] ([facility]) [address] [facility], [place], [address], 01/24/2025 06:17:45 01/23/20 25 01/23/2025 CBC WITH DIFFE RENTI AL/PL ATELE T WBC 8.9 x10e3 /uL 3.4-10 .8 Not Available [facility] ([facility]) [address] [place], [address], 01/24/2025 06:17:46 01/23/20 25 01/23/2025 CBC WITH DIFFE RENTI AL/PL ATELE T RBC 4.24 x10e6 /uL 3.77-5 .28 Not Available [facility] ([facility]) [address] [place], [address], 01/24/2025 06:17:46 01/23/20 25 01/23/2025 CBC WITH DIFFE RENTI AL/PL ATELE T hemoglobin 12.9 g/dL 11.1-1 5.9 Not Available [facility] ([facility]) [address] [place], [address], 01/24/2025 06:17:46 01/23/20 25 01/23/2025 CBC WITH DIFFE RENTI AL/PL ATELE T hematocrit 40.2 % 34.0-4 6.6 Not Available [facility] ([facility]) [address] [place], [address], 01/24/2025 06:17:46 01/23/20 25 01/23/2025 CBC WITH DIFFE RENTI AL/PL ATELE T MCV 95 fL 79-97 Not Available [facility] ([facility]) [address] [facility], [place], [address], 01/24/2025 06:17:46 01/23/20 25 01/23/2025 CBC WITH DIFFE RENTI AL/PL ATELE T MCH 30.4 pg 26.6-3 3.0 Not Available [facility] ([facility]) [address] [facility], [place], [address], 01/24/2025 06:17:46 01/23/20 25 01/23/2025 CBC WITH DIFFE RENTI AL/PL ATELE T MCHC 32.1 g/dL 31.5-3 5.7 Not Available [facility] ([facility]) [address] [place], [address], 01/24/2025 06:17:46 01/23/20 25 01/23/2025 CBC WITH DIFFE RENTI AL/PL ATELE T RDW 13.3 % 11.7-1 5.4 Not Available [facility] ([facility]) [address] [facility], [place], [address], 01/24/2025 06:17:46 01/23/20 25 01/23/2025 CBC WITH DIFFE RENTI AL/PL ATELE T platelets 426 x10e3 /uL 150-45 0 Not Available [facility] ([facility]) [address] [place], [address], 01/24/2025 06:17:46 01/23/20 25 01/23/2025 CBC WITH DIFFE RENTI AL/PL ATELE T neutrophils 63 % notest ab. Not Available [facility] ([facility]) [address] [facility], [place], [address], 01/24/2025 06:17:46 01/23/20 25 01/23/2025 CBC WITH DIFFE RENTI AL/PL ATELE T lymphs 27 % notest ab. Not Available [facility] ([facility]) [address] [facility], [place], [address], 01/24/2025 06:17:46 01/23/20 25 01/23/2025 CBC WITH DIFFE RENTI AL/PL ATELE T monocytes 7 % notest ab. Not Available [facility] ([facility]) [address] [facility], [place], [address], 01/24/2025 06:17:46 01/23/20 25 01/23/2025 CBC WITH DIFFE RENTI AL/PL ATELE T eos 2 % notest ab. Not Available [facility] ([facility]) [address] [facility], [place], [address], 01/24/2025 06:17:46 01/23/20 25 01/23/2025 CBC WITH DIFFE RENTI AL/PL ATELE T basos 1 % notest ab. Not Available [facility] ([facility]) [address] [place], [address], 01/24/2025 06:17:46 01/23/20 25 01/23/2025 CBC WITH DIFFE RENTI AL/PL ATELE T neutrophils (absolute) 5.6 x10e3 /uL 1.4-7. 0 Not Available [facility] ([facility]) [address] [place], [address], 01/24/2025 06:17:46 01/23/20 25 01/23/2025 CBC WITH DIFFE RENTI AL/PL ATELE T lymphs (absolute) 2.4 x10e3 /uL 0.7-3. 1 Not Available [facility] ([facility]) [address] [facility] [place], [address], 01/24/2025 06:17:46 01/23/20 25 01/23/2025 CBC WITH DIFFE RENTI AL/PL ATELE T monocytes(ab solute) 0.6 x10e3 /uL 0.1-0. 9 Not Available [facility] ([facility]) [address] [facility], [place], [address], 01/24/2025 06:17:46 01/23/20 25 01/23/2025 CBC WITH DIFFE RENTI AL/PL ATELE T eos (absolute) 0.2 x10e3 /uL 0.0-0. 4 Not Available [facility] ([facility]) [address] [facility], [place], [address], 01/24/2025 06:17:46 01/23/20 25 01/23/2025 CBC WITH DIFFE RENTI AL/PL ATELE T baso (absolute) 0.1 x10e3 /uL 0.0-0. 2 Not Available [facility] ([facility]) [address] [facility], [place], [address], 01/24/2025 06:17:46 01/23/20 25 01/23/2025 CBC WITH DIFFE RENTI AL/PL ATELE T immature granulocytes 0 % notest ab. Not Available [facility] ([facility]) [address] [facility], [place], [address], 01/24/2025 06:17:46 01/23/20 25 01/23/2025 CBC WITH DIFFE RENTI AL/PL ATELE T immature grans (abs) 0.0 x10e3 /uL 0.0-0. 1 Not Available [facility] ([facility]) [address] [place], [address], 01/24/2025 06:17:46 05/01/20 25 05/02/2025 LIPID PANEL cholesterol, total 132 mg/dL 100-19 9 Not Available [facility] ([facility]) [address] [facility], [place], [address], 05/02/2025 11:18:56 05/01/20 25 05/02/2025 LIPID PANEL triglyceride s 319 mg/dL 0-149 above high normal Not Available [facility] ([facility]) [address] [place], [address], 05/02/2025 11:18:56 05/01/20 25 05/02/2025 LIPID PANEL HDL cholesterol 39 mg/dL >39 below low normal Not Available [facility] ([facility]) [address] [place], [address], 05/02/2025 11:18:56 05/01/20 25 05/02/2025 LIPID PANEL VLDL cholesterol nicci 48 mg/dL 5-40 above high normal Not Available [facility] ([facility]) [address] [facility], [place], [address], 05/02/2025 11:18:56 05/01/20 25 05/02/2025 LIPID PANEL LDL chol calc ([facility]) 45 mg/dL 0-99 Not Available [facility] ([facility]) [address] [facility], [place], [address], 05/02/2025 11:18:56 05/01/20 25 05/01/2025 COMP. METAB OLIC PANEL (14) interpretati on: COMMEN T GFR estim ate at the follo wing level for >or=3 month s is class ified as follo ws: GFR WITH KIDNE Y DAMAG E WITHO UT KIDNE Y DAMAG E >or=9 0 Stage 1 Yanira l 60-89 Stage 2 Decr eased GFR 30-59 Stage 3 Stage 3 15-29 Stage 4 Stage 4 <15 (or dialy sis) Stage 5 Stage 5 Estim ated GFR will over estim ate true GFR if serum creat inine is risin g as in acute renal failu re and will under estim ate true GFR if serum creat inine is decli rome as in resol ving acute renal failu re. Addit ional infor madelaine burks may be found at www.k doqi. org. Not Available [facility] ([facility]) [address] [place], [address], 05/02/2025 11:18:57 05/01/20 25 05/02/2025 COMP. METAB OLIC PANEL (14) glucose 128 mg/dL 70-99 above high normal Not Available [facility] ([facility]) [address] [place], [address], 05/02/2025 11:18:57 05/01/20 25 05/02/2025 COMP. METAB OLIC PANEL (14) BUN 22 mg/dL 8-27 Not Available [facility] ([facility]) [address] [place], [address], 05/02/2025 11:18:57 05/01/20 25 05/02/2025 COMP. METAB OLIC PANEL (14) creatinine 1.32 mg/dL 0.57-1 .00 above high normal Not Available [facility] ([facility]) [address] [place], [address], 05/02/2025 11:18:57 05/01/20 25 05/02/2025 COMP. METAB OLIC PANEL (14) eGFR 42 mL/mi n/1.7 3 >59 below low normal Not Available [facility] ([facility]) [address] [place], [address], 05/02/2025 11:18:57 05/01/20 25 05/02/2025 COMP. METAB OLIC PANEL (14) BUN/creatini ne ratio 17 12-28 Not Available [facility] ([facility]) [address] [place], [address], 05/02/2025 11:18:57 05/01/20 25 05/02/2025 COMP. METAB OLIC PANEL (14) sodium 140 mmol/ L 134-14 4 Not Available [facility] ([facility]) [address] [place], [address], 05/02/2025 11:18:57 05/01/2005/02/2025 COMP. METAB OLIC PANEL (14) potassium 5.0 mmol/ L 3.5-5. 2 Not Available [facility] ([facility]) [address] [place], [address], 05/02/2025 11:18:57 05/01/2005/02/2025 COMP. METAB OLIC PANEL (14) chloride 105 mmol/ L 96-106 Not Available [facility] ([facility]) [address] [facility] [place], [address], 05/02/2025 11:18:57 05/01/20 25 05/02/2025 COMP. METAB OLIC PANEL (14) carbon dioxide, total 20 mmol/ L 20-29 Not Available [facility] ([facility]) [address] [facility] [place], [address], 05/02/2025 11:18:57 05/01/2005/02/2025 COMP. METAB OLIC PANEL (14) calcium 9.1 mg/dL 8.7-10 .3 Not Available [facility] ([facility]) [address] [facility] [place], [address], 05/02/2025 11:18:57 05/01/20 25 05/02/2025 COMP. METAB OLIC PANEL (14) protein, total 6.4 g/dL 6.0-8. 5 Not Available [facility] ([facility]) [address] [facility] [place], [address], 05/02/2025 11:18:57 05/01/20 25 05/02/2025 COMP. METAB OLIC PANEL (14) albumin 4.4 g/dL 3.8-4. 8 Not Available [facility] ([facility]) [address] [facility] [place], [address], 05/02/2025 11:18:57 05/01/20 25 05/02/2025 COMP. METAB OLIC PANEL (14) globulin, total 2.0 g/dL 1.5-4. 5 Not Available [facility] ([facility]) [address] [facility], [place], [address], 05/02/2025 11:18:57 05/01/20 25 05/02/2025 COMP. METAB OLIC PANEL (14) bilirubin, total 0.7 mg/dL 0.0-1. 2 Not Available [facility] ([facility]) [address] [facility], [place], [address], 05/02/2025 11:18:57 05/01/20 25 05/02/2025 COMP. METAB OLIC PANEL (14) alkaline phosphatase 76 IU/L 49-135 Ple ase note refer ence inter lyudmila banks e Not Available [facility] ([facility]) [address] [facility], [place], [address], 05/02/2025 11:18:57 05/01/20 25 05/02/2025 COMP. METAB OLIC PANEL (14) AST (SGOT) 15 IU/L 0-40 Not Available [facility] ([facility]) [address] [facility], [place], [address], 05/02/2025 11:18:57 05/01/20 25 05/02/2025 COMP. METAB OLIC PANEL (14) ALT (SGPT) 15 IU/L 0-32 Not Available [facility] ([facility]) [address] [facility], [place], [address], 05/02/2025 11:18:57 05/01/20 25 05/02/2025 CBC WITH DIFFE RENTI AL/PL ATELE T WBC 9.1 x10e3 /uL 3.4-10 .8 Not Available [facility] ([facility]) [address] [place], [address], 05/02/2025 11:18:57 05/01/2005/02/2025 CBC WITH DIFFE RENTI AL/PL ATELE T RBC 3.92 x10e6 /uL 3.77-5 .28 Not Available [facility] ([facility]) [address] [place], [address], 05/02/2025 11:18:57 05/01/2005/02/2025 CBC WITH DIFFE RENTI AL/PL ATELE T hemoglobin 11.8 g/dL 11.1-1 5.9 Not Available [facility] ([facility]) [address] [place], [address], 05/02/2025 11:18:57 05/01/2005/02/2025 CBC WITH DIFFE RENTI AL/PL ATELE T hematocrit 36.2 % 34.0-4 6.6 Not Available [facility] ([facility]) [address] [place], [address], 05/02/2025 11:18:57 05/01/2005/02/2025 CBC WITH DIFFE RENTI AL/PL ATELE T MCV 92 fL 79-97 Not Available [facility] ([facility]) [address] [place], [address], 05/02/2025 11:18:57 05/01/2005/02/2025 CBC WITH DIFFE RENTI AL/PL ATELE T MCH 30.1 pg 26.6-3 3.0 Not Available [facility] ([facility]) [address] [place], [address], 05/02/2025 11:18:57 05/01/2005/02/2025 CBC WITH DIFFE RENTI AL/PL ATELE T MCHC 32.6 g/dL 31.5-3 5.7 Not Available [facility] ([facility]) [address] [place], [address], 05/02/2025 11:18:57 05/01/2005/02/2025 CBC WITH DIFFE RENTI AL/PL ATELE T RDW 13.1 % 11.7-1 5.4 Not Available [facility] ([facility]) [address] [facility], [place], [address], 05/02/2025 11:18:57 05/01/2005/02/2025 CBC WITH DIFFE RENTI AL/PL ATELE T platelets 419 x10e3 /uL 150-45 0 Not Available [facility] ([facility]) [address] [facility], [place], [address], 05/02/2025 11:18:57 05/01/2005/02/2025 CBC WITH DIFFE RENTI AL/PL ATELE T neutrophils 64 % notest ab. Not Available [facility] ([facility]) [address] [facility], [place], [address], 05/02/2025 11:18:57 05/01/2005/02/2025 CBC WITH DIFFE RENTI AL/PL ATELE T lymphs 26 % notest ab. Not Available [facility] ([facility]) [address] [facility], [place], [address], 05/02/2025 11:18:57 05/01/2005/02/2025 CBC WITH DIFFE RENTI AL/PL ATELE T monocytes 8 % notest ab. Not Available [facility] ([facility]) [address] [facility], [place], [address], 05/02/2025 11:18:57 05/01/2005/02/2025 CBC WITH DIFFE RENTI AL/PL ATELE T eos 2 % notest ab. Not Available [facility] ([facility]) [address] [facility], [place], [address], 05/02/2025 11:18:57 05/01/20 25 05/02/2025 CBC WITH DIFFE RENTI AL/PL ATELE T basos 0 % notest ab. Not Available [facility] ([facility]) [address] [facility], [place], [address], 05/02/2025 11:18:57 05/01/20 25 05/02/2025 CBC WITH DIFFE RENTI AL/PL ATELE T neutrophils (absolute) 5.8 x10e3 /uL 1.4-7. 0 Not Available [facility] ([facility]) [address] [facility], [place], [address], 05/02/2025 11:18:57 05/01/2005/02/2025 CBC WITH DIFFE RENTI AL/PL ATELE T lymphs (absolute) 2.3 x10e3 /uL 0.7-3. 1 Not Available [facility] ([facility]) [address] [facility], [place], [address], 05/02/2025 11:18:57 05/01/20 25 05/02/2025 CBC WITH DIFFE RENTI AL/PL ATELE T monocytes(ab solute) 0.7 x10e3 /uL 0.1-0. 9 Not Available [facility] ([facility]) [address] [place], [address], 05/02/2025 11:18:57 05/01/2005/02/2025 CBC WITH DIFFE RENTI AL/PL ATELE T eos (absolute) 0.2 x10e3 /uL 0.0-0. 4 Not Available [facility] ([facility]) [address] [place], [address], 05/02/2025 11:18:57 05/01/20 25 05/02/2025 CBC WITH DIFFE RENTI AL/PL ATELE T baso (absolute) 0.0 x10e3 /uL 0.0-0. 2 Not Available [facility] ([facility]) [address] [place], [address], 05/02/2025 11:18:57 05/01/20 25 05/02/2025 CBC WITH DIFFE RENTI AL/PL ATELE T immature granulocytes 0 % notest ab. Not Available [facility] ([facility]) [address] [facility], [place], [address], 05/02/2025 11:18:57 05/01/20 25 05/02/2025 CBC WITH DIFFE RENTI AL/PL ATELE T immature grans (abs) 0.0 x10e3 /uL 0.0-0. 1 Not Available [facility] ([facility]) [address] [facility], [place], [address], 05/02/2025 11:18:57 08/20/19 25 08/20/2024 US, duple x, arter ial, lower extre mity No observ ation record ed. [facility] [address] , [place], [address], 08/20/2024 22:57:52 05/29/20 25 05/29/2025 US, renal No observ ation record ed. [address] [facility], [place], [address], 05/29/2025 18:34:23 05/29/20 25 05/29/2025 US, renal No observ ation record ed. [address] [address], [place], [address], 05/29/2025 18:50:01 Result Notes None recorded. Problems Name Problem SNOMED Code Status Onset Date Resolution Date Notes Provider Name and Address Organization Details Recorded Time Pain in left foot 4731940050606 07 Active 2023 VLADIMIR White [place] - [facility] 4 15:40:18 Pain in left lower limb 370315569 Active 2023 VLADIMIR White, [place] - [facility] 4 15:40:19 Essential hypertensio n 62111710 Active 2023 Rimma Isabel [place] null, [place] - [facility] 4 15:42:16 Peripheral arterial occlusive disease 097621081 Active 2023 Chencho Harris MD Attn: Papi payne,[address] [facility], [place], [address], [place] - [facility] 4 21:22:57 Hyperlipide marline 54191038 Active 2023 Chencho Harris MD Attn: Aidanwily payne,[address] [facility], [place], [place], [address] [place] [address] 2, [place] - [facility] 4 18:19:48 Anxiety 01567724 Active 2023 Chencho Harris MD Attn: Aidanwily payne,[address] [facility], [place], [place], [address] [place] [address] 2, [place] [facility] 4 18:20:02 Spinal stenosis of lumbar region 13953668 Active 2023 Rimma Isabel [place], [place] - [facility] 4 12:39:26 Tetanus vaccination declined by patient 065856283 Active 2024 Chencho Harris MD Attn: Aidanwily payne,[address] [facility], [place], [address], [place] [facility] 5 13:39:19 Influenza vaccination declined 305617055 Active 2024 Chencho Harris MD Attn: Aidanwily payne,[address] [facility], [place], [place], [address] [place] [address] 2, [place] - [facility] 5 13:39:20 Problem Notes Documentation Provider Name and Address Organization Details Recorded Time 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 Patient : 1945. Patient . Leeann Oropezaworth null, [place] - [facility] 09/11/2024 11:09:50 Procedures Surgical History Date Name Laterality Status Provider Name and Address Organization Details Recorded Time 05/08/20 24 angiography of abdominal blood vessel completed [facility] 07/03/2024 11:35:06 03/08/20 24 angiography of artery of left lower limb completed [facility] 07/03/2024 11:31:53 03/08/20 24 angiography of artery of right lower limb completed [facility] 07/03/2024 11:32:20 11/18/18 82 Total hysterectomy completed [facility] 07/03/2024 11:32:48 partial mandibulectomy completed Tomasa Syomne [facility] 01/26/2024 15:16:32 procedure on uterus completed [facility] 01/26/2024 15:18:41 Imaging Results None recorded. Procedure Notes None recorded. Medical Equipment None Reported. Allergies No known drug allergies Medications Name Sig Start Date Stop Date Status Note LastModified by Organization Details LastModified Time atorvasta tin 40 mg tablet TAKE 1 TABLET BY MOUTH DAILY active Not Available Not Available No t Available cilostazo l 100 mg tablet TAKE 1 TABLET BY MOUTH TWICE DAILY active Not Available Not Available No t Available atorvasta tin 10 mg tablet TAKE 1 TABLET BY MOUTH DAILY 05/01 completed Not Available Not Available Not Available metoprolo l succinate ER 50 mg tablet,ex tended release 24 hr TAKE 1 TABLET BY MOUTH TWICE DAILY DIRECTED 2024 active Not Available Not Available Not Avai lable hydrocodo ne 5 mg-acetam inophen 325 mg tablet 10/02 completed Not Available Not Available Not Available lisinopri l 20 mg tablet TAKE 1 TABLET BY MOUTH DAILY active Not Available Not Available No t Available clopidogr el 75 mg tablet TAKE 1 TABLET BY MOUTH DAILY 01/22 completed Not Available Not Available Not Available aspirin 81 mg tablet,de layed release TAKE 1 TABLET BY MOUTH ONCE DAILY. active Not Available Not Available No t Available amoxicill in 875 mg tablet TAKE 1 TABLET BY MOUTH TWICE DAILY 01/22 completed Not Available Not Available Not Available alprazola m 0.25 mg tablet TAKE 1 TABLET BY MOUTH FOUR TIMES DAILY active prescrib ed by Psychiat ry Not Available Not Available Not Available lisinopri l 10 mg tablet TAKE 1 TABLET BY MOUTH DAILY 10/02 completed Not Available Not Available Not Available methylpre dnisolone 4 mg tablets in a dose pack FOLLOW PACKAGE DIRECTIO NS 01/22 completed Not Available Not Available Not Available amoxicill in 875 mg-potass ium clavulana te 125 mg tablet TAKE 1 TABLET BY MOUTH TWICE DAILY 01/22 completed Not Available Not Available Not Available ezetimibe 10 mg tablet TAKE 1 TABLET BY MOUTH DAILY active Not Available Not Available No t Available Premarin 0.625 mg tablet 1 tablet every other day active Not Available Not Available No t Available omega-3 acid ethyl esters 1 gram capsule TAKE 2 CAPSULES BY MOUTH TWICE DAILY active Not Available Not Available No t Available varenicli ne tartrate 1 mg tablet TAKE 1 TABLET BY MOUTH TWICE DAILY active Not Available Not Available No t Available varenicli ne tartrate 0.5 mg (11)-1 mg (42) tablets in a dose pack Take 1 startr pk by oral route as directed . 01/22 completed Not Available Not Available Not Available Farxiga 5 mg tablet Take 1 tablet every day by oral route for 90 days. 2024 active Not Available Not Available Not Avai lable Xarelto 2.5 mg tablet TAKE 1 TABLET BY MOUTH TWICE DAILY active Not Available Not Available No t Available Vitals Date Recorded Body height Body mass index (BMI) Body weight Heart rate Oxygen saturation Oxygen saturation in Arterial blood by Pulse oximetry Systolic And Diastolic Provider Name and Address Organization Details Last Updated DateTime 5 162.56 cm 24.5 kg/m2 44901.9 1 g 57 /min 98 % 98 % 118/76 mm[Hg] [facility] 5 12:03:37 Date Recorded Body height Body mass index (BMI) Body weight Heart rate Oxygen saturation Oxygen saturation in Arterial blood by Pulse oximetry Systolic And Diastolic Provider Name and Address Organization Details Last Updated DateTime 5 162.56 cm 25.1 kg/m2 98369.2 g 69 /min 96 % 96 % 130/76 mm[Hg] [facility] 5 11:58:38 Date Recorded Body mass index (BMI) Body weight Oxygen saturation Oxygen saturation in Arterial blood by Pulse oximetry Heart rate Systolic And Diastolic Provider Name and Address Organization Details Last Updated DateTime 4 23.5 kg/m2 08611.1 5 g 98 % 98 % 68 /min 112/78 mm[Hg] Brennangerson VLADIMIR Yusuf [facility] 4 11:33:58 Date Recorded Body height Provider Name an d Address Organization Details Last Updated DateTime 05/01/2024 162.56 cm Barby Ray MA [facility] 05/01/2024 11:22:36 Date Recorded Body height Body mass index (BMI) Body weight Heart rate Oxygen saturation Oxygen saturation in Arterial blood by Pulse oximetry Systolic And Diastolic Provider Name and Address Organization Details Last Updated DateTime 162.56 cm 25.6 kg/m2 52449.7 g 70 /min 96 % 96 % 112/72 mm[Hg] Barby Ray MA [facility] 5 12:11:58 Date Recorded Body height Body mass index (BMI) Body weight Heart rate Oxygen saturation Oxygen saturation in Arterial blood by Pulse oximetry Systolic And Diastolic Provider Name and Address Organization Details Last Updated DateTime 162.56 cm 23.1 kg/m2 72283.8 1 g 64 /min 98 % 98 % 122/80 mm[Hg] Barby Ray MA [facility] 4 11:27:32 Social History Question Answer Notes LastModified by Organizat ion Details LastModified Time Tobacco Smoking Status [facility] 12:06:37 Do You Have An Advance Directive? Yes Information not available 01/26/2024 How Many Years Have You Consumed Alcohol? 50 Information not available 01/26/2024 What Is Your Level Of Caffeine Consumption? Heavy Information not available 01/26/2024 In The 14 Days Before Symptom Onset, Have You Had Close Contact With A Laboratory-confir med COVID-19 While That Case Was Ill? No Information not available 01/26/2024 In The 14 Days Before Symptom Onset, Have You Had Close Contact With A Person Who Is Under Investigation For COVID-19 While That Person Was Ill? No Information not available 01/26/2024 Have You Been To An Area Known To Be High Risk For COVID-19? No Information not available 01/26/2024 Are You Deaf Or Do You Have Serious Difficulty Hearing? Yes Both Ears, More Right Ear. Information not available 01/26/2024 What Type Of Diet Are You Following? REGULAR Information not available 01/26/2024 Are There Any Guns Present In Your Home? No Information not available 01/26/2024 What Was The Date Of Your Most Recent Tobacco Screening? 05/01/2025 Information not available 05/01/2025 What Is Your Current Pack Years? 10packyears Information not available 01/26/2024 What Is Your Relationship Status? Information not available 01/26/2024 Do You Use Your Seat Belt Or Car Seat Routinely? Yes Information not available 01/26/2024 Do You Have Smoke And Carbon Monoxide Detectors In Your Home? Yes Information not available 01/26/2024 How Much Tobacco Do You Smoke? No Information not available 10/02/2024 Do You Use Sunscreen Routinely? Yes Information not available 01/26/2024 Has Tobacco Cessation Counseling Been Provided? Yes Information not available 01/26/2024 On What Date Was Tobacco Cessation Counseling Provided? 05/01/2025 Information not available 05/01/2025 How Many Years Have You Smoked Tobacco? 40 Information not available 01/26/2024 Sex: Female Functional Status Question Answer Note LastModified by Organizat ion Details LastModified Time Do you use any illicit or recreational drugs? No Information not available 01/26/2024 Do you or have you ever used any other forms of tobacco or nicotine? No Information not available 01/26/2024 What is your level of alcohol consumption? Occasional Information not available 01/26/2024 Are you currently employed? No Information not available 01/26/2024 Are you able to care for yourself independently? Yes Information not available 01/26/2024 What is your exercise level? Occasional Information not available 01/26/2024 Mental Status Question Answer Note LastModified by Organization D etails LastModified Time Do you feel stressed (tense, restless, nervous, or anxious, or unable to sleep at night)? FD3071-3 Information not available 01/26/2024 Family History Relationship Description Onset Age of this Age Resolved Age Notes LastModified by Organization Details LastModified Time Mother Dementia mebyma Not available 0 01/26/2024 15:10:26 Mother Hypertensive disorder mebyma Not available 2023 15:12:16 Mother Migraine mebyma Not available 0 01/26/2024 15:13:02 Paternal Grandmother Dementia mebyma Not available 01/25 15:11:09 Paternal Grandmother Depressive disorder mebyma Not available 2023 15:11:25 Father Heart disease mebyma Not available 2023 15:11:52 Medical History Condition Response Coronary Artery Disease N High Blood Pressure Y Atrial Fibrillation N Kidney or Bladder Problems Y Thyroid Problems Y GI Problems Y Depression Y COPD N Blood Clots N Skin Problems N Anemia N Heart Attack (VT) N Anxiety Disorder Y Diabetes N Muscle, Joint, or Bone Problems N Seizures/Epilepsy N Acid Reflux (GERD) N Cancer Stroke N Asthma N Allergies N High Cholesterol Y Hepatitis N Liver Disease N Headaches N Heart Failure N Osteoporosis N Gynecological History Statement/Question Response If Post Menopausal, Age at Menopause 32 Current Control Method Hysterectom y Obstetrics History GPAL:G 3 P 3 0 0 3 Type Value Full Term 3 Living 3 Total 3 Immunizations Vaccine Type Date Status Note Provider Nam e and Address Organization Details Recorded Time Influenza, adjuvanted, quadrivalent, PF 1 completed Barby Ray [place] null, [place] [facility] 10/02/2024 09:22:52 COVID-19, mRNA, LNP-S, PF, 100 mcg/0.5mL dose or 50 mcg/0.25mL dose 1 completed Barby Ray [place], [place] [facility] 10/02/2024 09:22:52 COVID-19, mRNA, LNP-S, PF, 100 mcg/0.5mL dose or 50 mcg/0.25mL dose 1 completed VLADIM[place] Day[place] [facility] 10/02/2024 09:22:52 COVID-19, mRNA, LNP-S, PF, 30 mcg/0.3 mL dose 1 [place] [facility] 10/02/2024 09:22:52 Influenza, split virus, trivalent, preservative 1 completed VL[place] [facility] 10/02/2024 09:22:52 Influenza, split virus, trivalent, preservative 3 [place] [facility] 10/02/2024 09:22:52 Influenza, split virus, trivalent, preservative 4 completed [place] [facility] 10/02/2024 09:22:52 Pneumococcal conjugate PCV20, polysaccharide [id number] conjugate, adjuvant, PF 5 completed Chencho Harris MD Attn: Accounting[address] [place], [address], [place] [facility] 10/04/2024 13:37:57 Past Encounters Encounter ID Performer Location Encounter Start Date Encounter Closed Date Diagnosis/Indication Diagnosis SNOMED-CT Code Diagnosis ICD10 Code Diagnosis IMO Codes Diagnosis Note [id number] Chencho Harris MD [facility] [employer] [address] [place] [address] 01/26/2024 14:52:35 01/26/2024 15:45:19 Pain in left foot 1030345250 05447 M79.672 Pain in le ft lower limb 003108254 M79.605 Essential hypertension 54608533 I10 [id number] Chencho Harris MD [facility] [employer] [facility] [place] [address] [place] [address] 02/27/2024 11:54:07 02/27/2024 12:44:37 Essential hypertension 47085984 I10 Peripheral arterial occlusive disease 414226184 I73.9 Anxiety 77105536 F41.9 Dyslipidemia 784864078 E 78.5 [id number] MD Michael Culp (Adult Med) [address] [place] [address] 05/01/2024 11:19:49 05/01/2024 12:17:02 Essential hypertension 91275913 I10 Peripheral arterial occlusive disease 998145569 I73.9 Hyperlipidemia 50028287 E78.5 Anxiety 84427022 F41.9 [id number] MD Michael Culp (Adult Med) [address] [place] [address] 07/03/2024 11:20:21 07/03/2024 12:33:47 Body mass index 20-24 - normal 470007232 Z68.23 Essential hypertension 58555807 I10 Spinal george nosis of lumbar region 71885141 M48.061 Paresthesi a of lower extremity 021158991 R20.2 Smoker 39627930 F17.479 [id number] MD Michael Culp (Adult Med) [address] [place] [phone] 10/02/2024 11:54:50 10/02/2024 12:33:27 Body mass index 20-24 - normal 681834037 Z68.23 Overweight 071311934 E66 .3 Administra tion of pneumococcal vaccine 29037519 Z23 Essential hypertension 61759529 I10 Hyperlipidemia 94276235 E78.5 Anxiety 75683249 F41.9 Peripheral arterial occlusive disease 743500632 I73.9 Influenza vaccination declined 049811832 Z28.21 Tetanus va ccination declined by patient 265682897 Z28.21 [id number] MD Michael Culp (Adult Med) [address] [place] [phone] 01/22/2025 11:45:58 01/22/2025 13:07:40 Overweight in adulthood with body mass index of 25 or more but less than 30 822876036 Z68.25 193797 Essential hypertension 60742910 I10 Smoker 80521530 F17.200 Peripheral arterial occlusive disease 320940774 I73.9 Hyperlipidemia 49350856 E78.5 Anxiety 80679305 F41.9 Spinal george nosis of lumbar region 39473839 M48.092 [id number] MD Michael Culp (Adult Med) [address] [place] [address] 05/01/2025 11:58:08 05/01/2025 12:54:25 Overweight in adulthood with body mass index of 25 or more but less than 30 169459428 Z68.25 881495 25.6 Essential hypertension 01720935 I10 Hyperlipidemia 95462850 E78.5 Spinal george nosis of lumbar region 41791367 M48.061 Peripheral arterial occlusive disease 724986241 I73.9 Anxiety 27835555 F41.9 Health Concerns Section Related Observation LastModified by Organization Detai ls LastModified Time None Recorded Concern Status LastModified by Organization Details LastModified Time None Recorded Advance Directives Directive Y: Payers Insurance Date Sequence Insurance Name Policy Number Policy Carreno Covered Member ID Carreno Member ID Guarantor Name 04/28/2025 [place] - [place] Yasmin Hines Marya [id number] Yasmin Marya 04/28/2025 1 [place] Yasmin Marya [id number] Yasmin Malhotra 04/28/2025 2 [place] [id number] Yasmin Marya [id number] Yasmin Marya Notes Date Note Type Note Provider Name and Address Organization Details Recorded Time 05/01/2024 text/html VAD improving AAA seeing vascular surgery interval history skin cancer removed by ENT dyslipidemia tolerating her diet smoking cessation she is working on it very hard hypertension no headache no dizziness anxiety seems to be doing fine Chencho Harris MD Attn: Accounting[address] [place], [address], [facility] 05/27/2024 18:22:10 07/03/2024 text/html hypertension blood pressure 122/80. Still smoking. Some numbness at times in her right leg she still has a little bit in her left leg. Anxiety doing fine on current medical regimen peripheral arterial occlusive disease stent abdominal aortic aneurysm following with vascular surgery Chencho Harris MD Attn: [address] [place], [address], [facility] - [facility] 07/07/2024 21:15:28 10/02/2024 text/html hypertension no headache or dizziness. Dyslipidemia she was trying to watch her diet. Anxiety has been stable peripheral arterial occlusive disease she was doing better and has improving improving symptoms. Chencho Harris MD Attn: Accounting[address] , [place], [address], [facility] 10/04/2024 13:39:43 01/22/2025 text/html No claudication hypertension her blood pressure is controlled anxiety is up she has a son who is very sick dyslipidemia does try to watch her diet she is smoking because of her anxiety over her child Barby Ray, VLADIMIR [facility], [place] - [facility] 01/28/2025 10:18:35 05/01/2025 text/html She is trying to follow a low-fat diet. Her anxiety has been doing fine. There has no symptoms right now referable to her spinal stenosis. Peripheral arterial occlusive disease they are working now on her right leg she has some disease there and she is working with Cardiology. Her blood pressure is well controlled she is not smoking Chencho Harris MD Attn: [address] , [place], [address], [facility] - [facility] 05/01/2025 13:47:41 OBGyn Episode No OBEpisode recorded.
--- OUTSIDE RECORDS SUMMARY | 2025-05-29 20:14 | XMS_ITS | Clinical Summary ---
Author Organization [facility] [employer] Address [address] [place] [address] Care Team Providers Care Scrap Drop Engineer Name Role Phone Wander Harris MD Primary Care Provider [phone] Source Comments [facility] [employer],non-owned Affiliates and Associated Physician Practices is amultiple site organization consisting of ambulatory clinics and hospital sitesin [place], [place], [place] and [place]. This disclosure is being madepursuant to the Care Everywhere program and may not contain all information available regarding this patient. Last updated 18.[facility] [employer] Allergies No known active allergies Medications * Be aware that medications may not be up to date on this document. Alwaysverify current medications with the patient. estrogens, conjugated, (PREMARIN) 0.625 MG tablet Take 0.625 mg by mouth once daily Active metoprolol succinate XL 24hr (TOPROL XL) 50 MG tablet Take 50 mg by mouth once daily Active ALPRAZolam (XANAX) 0.25 MG tablet Take 0.25 mg by mouth 3 times daily as needed for Anxiety Active CycloSPORINE (RESTASIS OP) Active albuterol HFA (PROVENTIL;VENT SIMONE;PROAIR) 108 (90 BASE) MCG/ACT inhaler Inhale 2 puffs by mouth every 4 hours as needed for Wheezing 1 Inhaler 04/27/2018 Active benzonatate (TESSALON) 100 MG capsuleIndicati ons:Cough Take 1 capsule by mouth 3 times daily as needed for Cough Reasons: Cough 30 capsule 04/27/2018 Active Social History Tobacco Use Types Packs/Day Years Used Date Smoking Tobacco: Some Days Smokeless Tobacco: Never Comments No Sex and Gender Information Value Date Recorded Sex Assigned at Not on file 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 Gender Identity Not on file Sexual Orientation Not on file Last Filed Vital Signs Vital Sign Reading Time Taken Comments Blood Pressure 118/68 04/27/2018 12:16 PM CDT Pulse 67 04/27/2018 12:16 PM CDT Temperature 37.1 C (98.7 F) 04/27/2018 12:16 PM CDT Respiratory Rate 16 04/27/2018 12:16 PM CDT Oxygen Saturation 98% 04/27/2018 12:16 PM CDT Inhaled Oxygen Concentration - - Weight 63.5 kg (140 lb) 04/27/2018 12:16 PM CDT Height 162.6 cm (5' 4) 04/27/2018 12:16 PM CDT Body Mass Index 24.03 04/27/2018 12:16 PM CDT Plan of Treatment Health Maintenance Due Date Last Done Comments BONE DENSITY TESTING 1945 HEPATITIS C SCREENING 06/11/1965 DTAP/TDAP/TD VACCINES (1 - Tdap) 1966 PNEUMOCOCCAL VACCINE 50+ (1 of 1 - PCV) 1997 ZOSTER VACCINE (1 of 2) 1997 Respiratory Syncytial Virus (RSV) Vaccine Pt: or over 60 yrs (1 - 1-dose 75+ series) 2022 DEPRESSION SCREENING 08/08/2024 COVID-19 VACCINE (1 - 2023-2 5 season) 2025 INFLUENZA VACCINE (#1) 2025 07/24/2014 HEPATITIS B VACCINE Aged Out No longe r eligible based on patient's age to complete this topic HIB VACCINE Aged Out No longer eligi ble based on patient's age to complete this topic HPV VACCINE Aged Out No longer eligi ble based on patient's age to complete this topic MENINGOCOCCAL (Group B) VACC INE SHARED DECISION-MAKING Aged Out No longer eligibl e based on patient's age to complete this topic MENINGOCOCCAL GROUPS A/C/Y/W VACCINE Aged Out No longer eligible b ased on patient's age to complete this topic Insurance [employer] Care Teams Scrap Drop Engineer Relationship Specialty Start Date End Date Wander Harris MD PCP - General Internal Medicine 08/16/16
== END 2025-05-29 16:15 | disposition home or self-care (01) ==
PROVIDERS: PCP Internal Medicine; Visit Provider Internal Medicine
DX: N28.9 Disorder of kidney and ureter, unspecified (principal)
CPT/HCPCS: 76770